=== PATIENT | female | born 1955 | race Caucasian/White ===

== ENCOUNTER → 2020-01-29 12:26 | Outpatient (CLI) | payer OTHER, SELFPAY ==
--- NOTE | ~2020-01-29 | MM_ITS ---
EXAMINATION: MM screening nickie BI w mirna HISTORY: Screening mammogram TECHNIQUE: Craniocaudal and mediolateral oblique 3-D tomosynthesis images were obtained and synthetic 2-D images were generated. CAD analysis was submitted and interpreted. COMPARISON: 11/03/2018 bilateral digital screening mammogram / bilateral diagnostic digital mammogram and Limited bilateral breast ultrasound 09/08/2014 bilateral digital screening mammogram BREAST PARENCHYMAL COMPOSITION: The breasts are heterogeneously dense, which may obscure small masses . FINDINGS: There is no evidence of suspicious mass, calcification, or architectural distortion to sugg est malignancy in either breast. There has been no suspicious interval change. IMPRESSION: 1. No mammographic evidence of malignancy. 2. Recommend routine screening mammography in one year. BI-RADS Category 1: Negative Reviewed, dictated and finalized at location A.
== END ==
PROVIDERS: PCP Family Medicine; Visit Provider Obstetrics & Gynecology
DX: Z12.31 Encounter for screening mammogram for malignant neoplasm of breast (principal)
CPT/HCPCS: 77063; 77067

== ENCOUNTER → 2020-01-29 12:29 | Outpatient (CLI) | payer OTHER, SELFPAY ==
--- NOTE | ~2020-01-29 | XR_ITS ---
EXAMINATION:XR cervical spine 4-5V DATE: 01/29/2020 13:06 INDICATION: Cervicalgia TECHNIQUE: AP, lateral, lateral swimmers and odontoid views of the cervical spine are provided. COMPARISON: None FINDINGS: There is reversal of normal cervical lordosis. There is 1 mm of anterolisthesis of C4 on C 5. The odontoid is intact. No fracture is identified. The vertebral body heights are normal. There is mild loss of intervertebral disc space height at C6-7 and C7-T1. Small degenerative osteophytes proj ect from the anterior endplates of multiple vertebral bodies. There is moderate facet and mild uncove rtebral joint osteoarthritis in the mid cervical spine. Prevertebral soft tissues are normal. IMPRESSION: 1. Mild cervical spondylosis without acute findings. Reviewed, dictated and finalized at location B.
== END ==
PROVIDERS: PCP Family Medicine; Visit Provider Family Medicine
DX: M47.892 Other spondylosis, cervical region (principal)
CPT/HCPCS: 72050

== ENCOUNTER 2020-02-26 12:21 | Outpatient (CLI) | payer OTHER, SELFPAY ==
[2020-02-26 12:30] LABS: Basophils Percent Auto 0.7 % (0.2-1.2); Eosinophils Absolute Auto 0.7 K/mm3 (0-0.3); Eosinophils Percent Auto 11.9 % (0-4.4); Hematocrit 36.8 % (37.0-47.0); Hemoglobin 12.1 g/dL (12.0-15.0); Immature Granulocyte Absolute 0.01 K/mm3 (0.00-0.031); Immature Granulocyte Percent A 0.2 % (0-0.5); Lymphocytes Absolute Auto 1.67 K/mm3 (0.9-3.2); Lymphocytes Percent Auto 27.6 % (18.3-44.2); Mean Corpuscular HGB Conc 32.9 g/dl (32-36); Mean Corpuscular Hemoglobin 30.3 pg (26-34); Mean Platelet Volume 9.8 fl (7.4-10.4); Monocytes Absolute Auto 0.5 K/mm3 (0.1-0.6); Monocytes Percent Auto 7.6 % (2.6-8.5); Neutrophils Absolute Auto 3.2 K/mm3 (1.3-6.7); Platelet Count Result 208 k/mm3 (150-375); Red Cell Distribution Width 11.8 % (11.5-14.5); White Blood Count 6.1 K/mm3 (4.5-10.0)
[2020-02-26 13:55] LABS: Iron 127 ug/dL (37-170)
[2020-02-26 14:04] LABS: Percent Iron Saturation 42 % (20-50)
[2020-02-26 14:08] LABS: Blood Urea Nitrogen 15 mg/dL (7-17); Calcium 9.6 mg/dL (8.4-10.2); Carbon Dioxide 30 mmol/L (22-30); Chloride 101 mmol/L (98-107); Estimated Glomerular Filt Rate > 60; Glucose 107 mg/dL (65-105); Potassium 3.6 mmol/L (3.4-5.0); Sodium 138 mmol/L (137-145)
== END 2020-02-26 12:22 | disposition home or self-care (01) ==
LOC: ANHLAB 12:22
PROVIDERS: PCP Family Medicine; Visit Provider Internal Medicine Hematology & Oncology
DX: D50.9 Iron deficiency anemia, unspecified (principal)
CPT/HCPCS: 36415; 80048; 82728; 83540; 83550; 84443; 85025

== ENCOUNTER 2020-04-14 10:48 | Outpatient (CLI) | payer OTHER, SELFPAY ==
[2020-04-14 11:05] LABS: Basophils Absolute Auto 0.1 K/mm3 (0.0-0.1); Basophils Percent Auto 1.1 % (0.2-1.2); Eosinophils Absolute Auto 0.8 K/mm3 (0-0.3); Eosinophils Percent Auto 13.9 % (0-4.4); Hemoglobin 11.8 g/dL (12.0-15.0); Immature Granulocyte Absolute 0.02 K/mm3 (0.00-0.031); Immature Granulocyte Percent A 0.4 % (0-0.5); Lymphocytes Absolute Auto 1.67 K/mm3 (0.9-3.2); Lymphocytes Percent Auto 30.9 % (18.3-44.2); Mean Corpuscular HGB Conc 32.8 g/dl (32-36); Mean Corpuscular Hemoglobin 29.6 pg (26-34); Mean Corpuscular Volume 90.2 fl (80-100); Mean Platelet Volume 9.7 fl (7.4-10.4); Monocytes Absolute Auto 0.5 K/mm3 (0.1-0.6); Monocytes Percent Auto 8.7 % (2.6-8.5); Neutrophils Absolute Auto 2.4 K/mm3 (1.3-6.7); Platelet Count Result 243 k/mm3 (150-375); Red Blood Count 3.99 M/mm3 (4.2-5.4); Red Cell Distribution Width 12.1 % (11.5-14.5); White Blood Count 5.4 K/mm3 (4.5-10.0)
[2020-04-14 12:03] LABS: Iron 104 ug/dL (37-170)
[2020-04-14 12:14] LABS: Percent Iron Saturation 35 % (20-50)
== END 2020-04-14 10:49 | disposition home or self-care (01) ==
PROVIDERS: PCP Family Medicine; Visit Provider Internal Medicine Hematology & Oncology
DX: D50.9 Iron deficiency anemia, unspecified (principal)
CPT/HCPCS: 36415; 82728; 83540; 83550; 85025

== ENCOUNTER 2020-06-01 12:20 | Outpatient (CLI) | payer OTHER, SELFPAY ==
[2020-06-01 12:33] LABS: Hematocrit 36.2 % (37.0-47.0); Mean Corpuscular HGB Conc 33.1 g/dl (32-36); Mean Corpuscular Hemoglobin 29.3 pg (26-34); Mean Corpuscular Volume 88.5 fl (80-100); Mean Platelet Volume 9.9 fl (7.4-10.4); Platelet Count Result 226 k/mm3 (150-375); Red Blood Count 4.09 M/mm3 (4.2-5.4); Red Cell Distribution Width 12.1 % (11.5-14.5); White Blood Count 6.4 K/mm3 (4.5-10.0)
[2020-06-01 16:43] LABS: Iron 103 ug/dL (37-170)
[2020-06-01 16:58] LABS: Percent Iron Saturation 34 % (20-50)
== END 2020-06-01 12:21 | disposition home or self-care (01) ==
PROVIDERS: PCP Family Medicine; Visit Provider Internal Medicine Hematology & Oncology
DX: D50.9 Iron deficiency anemia, unspecified (principal)
CPT/HCPCS: 36415; 82728; 83540; 83550; 85027

== ENCOUNTER 2020-08-30 01:11 | Outpatient (CLI) | payer OTHER, SELFPAY ==
[2020-08-31 13:51] LABS: SARS-CoV-2 RNA PCR Negative
== END 2020-08-30 01:12 | disposition home or self-care (01) ==
LOC: ANHCOVIDDT 01:12
PROVIDERS: PCP Family Medicine Sports Medicine; Visit Provider Internal Medicine Gastroenterology
DX: Z01.812 Encounter for preprocedural laboratory examination (principal); Z20.828 Contact with and (suspected) exposure to other viral communicable diseases
CPT/HCPCS: 87635; C9803; U0003

== ENCOUNTER 2020-09-01 00:35 | Day surgery (SDC) | payer OTHER, SELFPAY ==
[2020-08-29 13:18] VITALS: BMI 25.7
--- NOTE | 2020-08-31 09:24 | WPDANESEPPF ---
Anes - Initial Pre Proc Eval Procedure: Operation Date: 09/01/20 09:00 Proposed Procedures p Esophagogastroduodenoscopy - Dany Ramires DO Date/Time: 08/31/20 09:24 Surgeon: Dany Ramires DO Pre Op Diagnosis: iron deficiency anemia Patient Data Age: 64 Gender: F Height: 1.63 m Weight: 68 kg Allergies Allergy/AdvReac Type Severity Reaction Status Date / Time No Known Allergies Allergy Verified 09/01/20 07:37 Home Medications Medication Instructions Recorded Confirmed Type ezetimibe 10 mg tablet 10 mg PO DAILY #90 tablet 01/11/20 08/29/20 Rx melatonin 10 mg capsule 10 mg PO .qhs cap 01/27/20 08/29/20 History vitamin B complex See Rx Instructions PO DAILY 01/27/20 08/29/20 History omeprazole 40 mg capsule,delayed 40 mg PO DAILY #90 cap 04/05/20 08/29/20 Rx release hydrochlorothiazide 25 mg tablet 25 mg PO DAILY #90 tablet 04/11/20 08/29/20 Rx ergocalciferol (vitamin D2) 1,250 50,000 unit PO WEEKLY #14 cap 06/03/20 08/29/20 Rx mcg (50,000 unit) capsule alprazolam 1 mg tablet,extended 1 mg PO DAILY #30 tablet 07/04/20 08/29/20 Rx release 24 hr lisinopril 40 mg tablet 40 mg PO DAILY #90 tablet 07/04/20 08/29/20 Rx duloxetine 60 mg capsule,delayed 60 mg PO DAILY #90 cap 07/05/20 08/29/20 Rx release aspirin [Adult Aspirin EC Low 81 mg PO DAILY 08/29/20 08/29/20 History Strength] carvedilol 6.25 mg PO BID 08/29/20 08/29/20 History icosapent ethyl [Vascepa] 2 g PO BID 08/29/20 08/29/20 History rosuvastatin 40 mg PO HS 08/29/20 08/29/20 History Patient hx anesthesia problems: none Family hx anesthesia problems: none PMFSH Past Medical History Medical History (Updated 08/31/20 @ 09:23 by Freddie Armando DO) Anxiety Benign essential HTN Depression GERD (gastroesophageal reflux disease) H/O reduction of open fracture (~03/2020) internal fixation of the left proximal humerus fracture Mixed hyperlipidemia Surgical History Surgical History History of shoulder surgery Family History Family History Mother Hypertension Family history of malignant neoplasm of kidney Family history of heart disease in male family member before age 55 Other Family history of cardiovascular disease Family history of kidney disease Social History Social History Smoking status: Never smoker Alcohol intake: never Substance use: never Substance use type: does not use Spiritual care concerns: No Anes - Eval Final PreProcedure Day of Procedure 08/31/20 09:24 Patient weight: overweight Heart: regular rate and rhythm Lungs: clear to auscultation and normal air movement Airway: Mallampati scale Neurological: alert and oriented Last oral intake: >/= 8 hours ASA classification: II Emergent: no Anesthetic plan: proceed Anesthesia type and monitoring: general GIVS and standard monitoring Informed Consent: The patient's anesthetic plan and its attendant risks and benefits were discussed with the patient/family/POA. Questions were solicited and answers provided to the satisfaction of the patient/family/POA.
[2020-09-01 07:39] VITALS: BP 122/79; PULSE 77; RESP 14; TEMP 36.6; O2SAT 99
[2020-09-01] MEDS: LACTATED RINGERS 1,000 ML 150 ML IV CONT (07:42)
--- NOTE | 2020-09-01 09:05 | PM.IMHP ---
H&P: HPI History of Present Illness Date/Time: 09/01/20 09:05 Chief complaint: iron deficiency anemia Narrative: Reason for visit EGD. This very pleasant lady seen in consultation request of primary physician. Impression: Iron deficiency anemia. GERD well controlled on medication. History adenomatous colon polyps. History of gastric polyps. Intestinal metaplasia . HTN. HLD. Anxiety /depression. Low bone mass. History: This very pleasant lady's here with a history of Id a. The patient had a previous colonoscopy revealing adenomatous colon polyps. Patient is here for EGD. Previous EGD revealed gastric polyps with intestinal metaplasia. Physical examination: General: very pleasant patient in no acute distress. HEENT: Head was normocephalic sclerae is clear mouth without masses neck was supple. Heart: Rate rhythm regular without S3 or S4. Lungs: CTA. Abdomen: Soft with no guarding or rigidity. Bowel sounds were active. Neurologic: Cranial nerves 2 through 12 intact. No focal defects. No clonus. Musculoskeletal system: Revealed no joint tenderness or swelling no muscle atrophy. Extremities: Reveal no significant edema. Skin: Warm and dry with normal turgor. Mental status: intact. Patient is alert and oriented. Review of Systems Review of Systems: All systems reviewed & are unremarkable except as noted in HPI and below PMFSH Past Medical History Medical History (Updated 08/31/20 @ 09:23 by Freddie Armando DO) Anxiety Benign essential HTN Depression GERD (gastroesophageal reflux disease) H/O reduction of open fracture (~03/2020) internal fixation of the left proximal humerus fracture Mixed hyperlipidemia Surgical History Surgical History History of shoulder surgery Family History Family History Mother Hypertension Family history of malignant neoplasm of kidney Family history of heart disease in male family member before age 55 Other Family history of cardiovascular disease Family history of kidney disease Social History Social History Smoking status: Never smoker Alcohol intake: never Substance use: never Substance use type: does not use Spiritual care concerns: No Meds Home Medications and Allergies Home Medications Medication Instructions Recorded Confirmed Type ezetimibe 10 mg tablet 10 mg PO DAILY #90 tablet 01/11/20 08/29/20 Rx melatonin 10 mg capsule 10 mg PO .qhs cap 01/27/20 08/29/20 History vitamin B complex See Rx Instructions PO DAILY 01/27/20 08/29/20 History omeprazole 40 mg capsule,delayed 40 mg PO DAILY #90 cap 04/05/20 08/29/20 Rx release hydrochlorothiazide 25 mg tablet 25 mg PO DAILY #90 tablet 04/11/20 08/29/20 Rx ergocalciferol (vitamin D2) 1,250 50,000 unit PO WEEKLY #14 cap 06/03/20 08/29/20 Rx mcg (50,000 unit) capsule alprazolam 1 mg tablet,extended 1 mg PO DAILY #30 tablet 07/04/20 08/29/20 Rx release 24 hr lisinopril 40 mg tablet 40 mg PO DAILY #90 tablet 07/04/20 08/29/20 Rx duloxetine 60 mg capsule,delayed 60 mg PO DAILY #90 cap 07/05/20 08/29/20 Rx release aspirin [Adult Aspirin EC Low 81 mg PO DAILY 08/29/20 08/29/20 History Strength] carvedilol 6.25 mg PO BID 08/29/20 08/29/20 History icosapent ethyl [Vascepa] 2 g PO BID 08/29/20 08/29/20 History rosuvastatin 40 mg PO HS 08/29/20 08/29/20 History Allergies Allergy/AdvReac Type Severity Reaction Status Date / Time No Known Allergies Allergy Verified 09/01/20 07:37 Vital Signs Vital Signs - 24 hr 09/01/20 07:39 Temperature 36.6 C Pulse Rate 77 Respiratory Rate 14 Blood Pressure 122/79 Pulse Oximetry 99
[2020-09-01 09:26] VITALS: BP 93/48; PULSE 63; RESP 14; O2SAT 100
[2020-09-01 09:36] VITALS: BP 88/52; PULSE 64; RESP 16; O2SAT 100
[2020-09-01 09:46] VITALS: BP 101/61; PULSE 58; RESP 14; O2SAT 100
[2020-09-01 09:56] VITALS: BP 128/74; PULSE 56; RESP 13; O2SAT 100
== END 2020-09-01 10:12 | disposition home or self-care (01) ==
PROVIDERS: PCP Family Medicine Sports Medicine; Visit Provider Internal Medicine Gastroenterology
PROC: 0DJ08ZZ Inspection of Upper Intestinal Tract, Via Natural or Artificial Opening Endoscopic (ICD-10-PCS; CPT 43235; principal; 2020-09-01 09:00)
DX: D50.9 Iron deficiency anemia, unspecified (principal); K31.7 Polyp of stomach and duodenum; K29.50 Unspecified chronic gastritis without bleeding; K21.9 Gastro-esophageal reflux disease without esophagitis; I10 Essential (primary) hypertension; E78.2 Mixed hyperlipidemia; F41.8 Other specified anxiety disorders
CPT/HCPCS: 43239; 87081; 88305; J7120

== ENCOUNTER 2020-09-01 10:55 | Outpatient (CLI) | payer OTHER, SELFPAY ==
[2020-09-01 11:12] LABS: Basophils Absolute Auto 0.1 K/mm3 (0.0-0.1); Basophils Percent Auto 0.9 % (0.2-1.2); Eosinophils Absolute Auto 0.6 K/mm3 (0-0.3); Eosinophils Percent Auto 11.6 % (0-4.4); Hematocrit 35.4 % (37.0-47.0); Hemoglobin 11.7 g/dL (12.0-15.0); Immature Granulocyte Absolute 0.01 K/mm3 (0.00-0.031); Immature Granulocyte Percent A 0.2 % (0-0.5); Lymphocytes Absolute Auto 1.68 K/mm3 (0.9-3.2); Lymphocytes Percent Auto 31.8 % (18.3-44.2); Mean Corpuscular HGB Conc 33.1 g/dl (32-36); Mean Corpuscular Hemoglobin 29.9 pg (26-34); Mean Corpuscular Volume 90.5 fl (80-100); Mean Platelet Volume 9.3 fl (7.4-10.4); Monocytes Absolute Auto 0.4 K/mm3 (0.1-0.6); Neutrophils Absolute Auto 2.6 K/mm3 (1.3-6.7); Neutrophils Percent Auto 48.5 % (45.5-73.1); Platelet Count Result 222 k/mm3 (150-375); Red Blood Count 3.91 M/mm3 (4.2-5.4); Red Cell Distribution Width 12.7 % (11.5-14.5); White Blood Count 5.3 K/mm3 (4.5-10.0)
[2020-09-01 11:17] LABS: Blood Urea Nitrogen 11 mg/dL (8-26); Carbon Dioxide 28 mmol/L (22-30); Chloride 102 mmol/L (98-109); Estimated Glomerular Filt Rate > 60; Glucose 94 mg/dL (70-105); Potassium 3.3 mmol/L (3.5-4.9); Sodium 143 mmol/L (138-146)
[2020-09-01 12:41] LABS: Iron 79 ug/dL (37-170)
[2020-09-01 12:43] LABS: Alanine Aminotransferase 31 U/L (4-35); Albumin Level 4.6 g/dL (3.5-5.1); Alkaline Phosphatase 65 U/L (38-126); Anion Gap 10 mmol/L (8-16); Aspartate Amino Transferase 37 U/L (14-36); Bilirubin,Total 0.4 mg/dL (0.2-1.3); Blood Urea Nitrogen 12 mg/dL (7-17); Calcium 9.6 mg/dL (8.4-10.2); Carbon Dioxide 32 mmol/L (22-30); Chloride 102 mmol/L (98-107); Estimated Glomerular Filt Rate > 60; Glucose 91 mg/dL (65-105); Potassium 3.5 mmol/L (3.4-5.0); Sodium 144 mmol/L (137-145)
[2020-09-01 12:50] LABS: Percent Iron Saturation 23 % (20-50)
== END 2020-09-01 10:56 | disposition home or self-care (01) ==
PROVIDERS: PCP Family Medicine Sports Medicine; Visit Provider Internal Medicine Hematology & Oncology
DX: D50.9 Iron deficiency anemia, unspecified (principal)
CPT/HCPCS: 36415; 80048; 80053; 82728; 83540; 83550; 85025

== ENCOUNTER → 2020-09-21 12:01 | Outpatient (CLI) | payer OTHER, SELFPAY ==
--- NOTE | ~2020-09-21 | XR_ITS ---
XR chest 2V DATE: 09/21/2020 12:15 INDICATION: Pneumonia TECHNIQUE: PA and lateral views COMPARISON: 01/13/2020 employee chest 07/15/2018 PA and lateral chest FINDINGS: Left upper lobe calcified pulmonary granuloma is again noted. The lungs are mildly hyperinf lated but clear of infiltrate or consolidation. Heart size is within normal range. No hilar or medias tinal enlargement. No pulmonary vascular congestion, pleural effusion or pneumothorax. Diffuse osteopenia. Hardware is noted at the proximal left humerus. IMPRESSION: No active cardiopulmonary disease Reviewed, dictated and finalized at location B. CILPERSON
== END ==
PROVIDERS: PCP Family Medicine Sports Medicine; Visit Provider Family Medicine Sports Medicine
DX: J18.9 Pneumonia, unspecified organism (principal)
CPT/HCPCS: 71046

== ENCOUNTER 2020-10-24 12:16 | Outpatient (CLI) | payer OTHER, SELFPAY ==
[2020-10-24 12:30] LABS: Basophils Absolute Auto 0.1 K/mm3 (0.0-0.1); Basophils Percent Auto 0.9 % (0.2-1.2); Eosinophils Absolute Auto 0.7 K/mm3 (0-0.3); Hematocrit 35.1 % (37.0-47.0); Hemoglobin 11.8 g/dL (12.0-15.0); Immature Granulocyte Absolute 0.01 K/mm3 (0.00-0.031); Immature Granulocyte Percent A 0.1 % (0-0.5); Lymphocytes Percent Auto 29.9 % (18.3-44.2); Mean Corpuscular HGB Conc 33.6 g/dl (32-36); Mean Corpuscular Hemoglobin 29.8 pg (26-34); Mean Corpuscular Volume 88.6 fl (80-100); Mean Platelet Volume 9.4 fl (7.4-10.4); Monocytes Absolute Auto 0.6 K/mm3 (0.1-0.6); Monocytes Percent Auto 7.9 % (2.6-8.5); Neutrophils Absolute Auto 3.9 K/mm3 (1.3-6.7); Neutrophils Percent Auto 52.2 % (45.5-73.1); Platelet Count Result 217 k/mm3 (150-375); Red Blood Count 3.96 M/mm3 (4.2-5.4); Red Cell Distribution Width 12.1 % (11.5-14.5); White Blood Count 7.4 K/mm3 (4.5-10.0)
[2020-10-24 13:53] LABS: Iron 79 ug/dL (37-170)
[2020-10-24 13:55] LABS: Alanine Aminotransferase 24 U/L (4-35); Albumin Level 4.4 g/dL (3.5-5.1); Alkaline Phosphatase 52 U/L (38-126); Anion Gap 7 mmol/L (8-16); Aspartate Amino Transferase 33 U/L (14-36); Bilirubin,Total 0.5 mg/dL (0.2-1.3); Blood Urea Nitrogen 14 mg/dL (7-17); Calcium 9.7 mg/dL (8.4-10.2); Carbon Dioxide 33 mmol/L (22-30); Chloride 101 mmol/L (98-107); Estimated Glomerular Filt Rate > 60; Glucose 104 mg/dL (65-105); Sodium 141 mmol/L (137-145)
[2020-10-24 14:02] LABS: Percent Iron Saturation 23 % (20-50)
[2020-10-24 15:15] LABS: Folic Acid 16.6 ng/mL (2.76->20); Vitamin B12 > 1000.0 pg/mL (239-931)
== END 2020-10-24 12:17 | disposition home or self-care (01) ==
PROVIDERS: Visit Provider Internal Medicine Hematology & Oncology
DX: D50.9 Iron deficiency anemia, unspecified (principal)
CPT/HCPCS: 36415; 80053; 82607; 82728; 82746; 83540; 83550; 85025

== ENCOUNTER 2021-06-13 12:27 | Outpatient (CLI) | payer OTHER, SELFPAY ==
[2021-06-13 12:51] LABS: Basophils Absolute Auto 0.1 K/mm3 (0.0-0.1); Basophils Percent Auto 0.9 % (0.2-1.2); Eosinophils Absolute Auto 0.3 K/mm3 (0-0.3); Eosinophils Percent Auto 5.5 % (0-4.4); Hematocrit 35.2 % (37.0-47.0); Hemoglobin 11.7 g/dL (12.0-15.0); Immature Granulocyte Absolute 0.01 K/mm3 (0.00-0.031); Immature Granulocyte Percent A 0.2 % (0-0.5); Lymphocytes Percent Auto 33.3 % (18.3-44.2); Mean Corpuscular HGB Conc 33.2 g/dl (32-36); Mean Corpuscular Hemoglobin 29.2 pg (26-34); Mean Corpuscular Volume 87.8 fl (80-100); Mean Platelet Volume 9.3 fl (7.4-10.4); Monocytes Absolute Auto 0.4 K/mm3 (0.1-0.6); Monocytes Percent Auto 7.8 % (2.6-8.5); Neutrophils Absolute Auto 2.8 K/mm3 (1.3-6.7); Neutrophils Percent Auto 52.3 % (45.5-73.1); Platelet Count Result 236 k/mm3 (150-375); Red Blood Count 4.01 M/mm3 (4.2-5.4); Red Cell Distribution Width 12.9 % (11.5-14.5); White Blood Count 5.4 K/mm3 (4.5-10.0)
[2021-06-13 16:34] LABS: Iron 110 ug/dL (37-170)
[2021-06-13 16:47] LABS: Percent Iron Saturation 34 % (20-50)
[2021-06-13 17:42] LABS: Folic Acid 12.2 ng/mL (2.76->20); Vitamin B12 > 1000.0 pg/mL (239-931)
== END 2021-06-13 12:28 | disposition home or self-care (01) ==
LOC: ANHLAB 12:30
PROVIDERS: PCP Family Medicine; Visit Provider Internal Medicine Hematology & Oncology
DX: D50.9 Iron deficiency anemia, unspecified (principal)
CPT/HCPCS: 36415; 82607; 82728; 82746; 83540; 83550; 85025

== ENCOUNTER → 2021-06-30 10:49 | Outpatient (CLI) | payer OTHER, SELFPAY ==
--- NOTE | ~2021-06-30 | XR_ITS ---
EXAMINATION: XR chest 2V DATE: 06/30/2021 11:04 INDICATION: Shortness of breath. TECHNIQUE: Frontal and lateral views of the chest were obtained. COMPARISON: Chest 2 views 09/21/2020, CT abdomen and pelvis 08/03/2019 FINDINGS: A calcified left lung nodule is consistent with old granulomatous disease. No pleural effus ion or pneumothorax. The heart size is normal. There is plate and screw fixation of proximal left hum erus. IMPRESSION: 1. No acute cardiopulmonary disease. Reviewed, dictated and finalized at location A.
== END ==
PROVIDERS: PCP Family Medicine; Visit Provider Physician Assistant
DX: R06.02 Shortness of breath (principal)
CPT/HCPCS: 71046

== ENCOUNTER 2021-10-24 17:31 | Outpatient (CLI) | payer OTHER, SELFPAY ==
--- NOTE | ~2021-10-24 | MM_ITS ---
EXAMINATION: MM screening [facility] BI w mirna HISTORY: Screening mammogram TECHNIQUE: Craniocaudal and mediolateral oblique 3-D tomosynthesis images were obtained and synthetic 2-D images were generated. CAD analysis was submitted and interpreted. COMPARISON: 01/29/2020, 11/03/2018, 09/08/2014 BREAST PARENCHYMAL COMPOSITION: The breasts are heterogeneously dense, which may obscure small masses . FINDINGS: There is no evidence of suspicious mass, calcification, or architectural distortion to sugg est malignancy in either breast. There has been no suspicious interval change. IMPRESSION: 1. No mammographic evidence of malignancy. 2. Recommend routine screening mammography in one year. BI-RADS Category 1: Negative Reviewed, dictated and finalized at location A. PRESIDENT OF TALENT MANAGEMENT
== END 2021-10-24 17:32 | disposition home or self-care (01) ==
LOC: ANHIMG 17:32
PROVIDERS: PCP Family Medicine; Visit Provider Obstetrics & Gynecology
DX: Z12.31 Encounter for screening mammogram for malignant neoplasm of breast (principal)
CPT/HCPCS: 77063; 77067

== ENCOUNTER 2021-12-15 12:31 | Outpatient (CLI) | payer OTHER, SELFPAY ==
[2021-12-15 12:48] LABS: Basophils Absolute Auto 0.1 K/mm3 (0.0-0.1); Basophils Percent Auto 1.1 % (0.2-1.2); Eosinophils Absolute Auto 0.4 K/mm3 (0-0.3); Eosinophils Percent Auto 6.4 % (0-4.4); Hematocrit 36.4 % (37.0-47.0); Hemoglobin 11.8 g/dL (12.0-15.0); Immature Granulocyte Absolute 0.01 K/mm3 (0.00-0.031); Immature Granulocyte Percent A 0.2 % (0-0.5); Lymphocytes Absolute Auto 1.89 K/mm3 (0.9-3.2); Lymphocytes Percent Auto 30.8 % (18.3-44.2); Mean Corpuscular HGB Conc 32.4 g/dl (32-36); Mean Corpuscular Hemoglobin 29.5 pg (26-34); Mean Platelet Volume 9.7 fl (7.4-10.4); Monocytes Absolute Auto 0.6 K/mm3 (0.1-0.6); Neutrophils Absolute Auto 3.2 K/mm3 (1.3-6.7); Neutrophils Percent Auto 52.5 % (45.5-73.1); Platelet Count Result 228 k/mm3 (150-375); Red Cell Distribution Width 12.3 % (11.5-14.5); White Blood Count 6.1 K/mm3 (4.5-10.0)
[2021-12-15 16:22] LABS: Iron 85 ug/dL (37-170)
[2021-12-15 16:25] LABS: Anion Gap 7 mmol/L (8-16); Blood Urea Nitrogen 14 mg/dL (7-17); Calcium 9.6 mg/dL (8.4-10.2); Carbon Dioxide 32 mmol/L (22-30); Chloride 98 mmol/L (98-107); Estimated Glomerular Filt Rate > 60; Glucose 92 mg/dL (65-110); Sodium 137 mmol/L (137-145)
[2021-12-15 16:37] LABS: Percent Iron Saturation 25 % (20-50)
[2021-12-15 17:33] LABS: Folic Acid 10.9 ng/mL (2.76->20)
== END 2021-12-15 12:32 | disposition home or self-care (01) ==
LOC: ANHLAB 12:33
PROVIDERS: PCP Family Medicine; Visit Provider Internal Medicine Hematology & Oncology
DX: D50.9 Iron deficiency anemia, unspecified (principal)
CPT/HCPCS: 36415; 80048; 82607; 82728; 82746; 83540; 83550; 85025

== ENCOUNTER 2021-12-25 11:38 | Outpatient (CLI) | payer OTHER, SELFPAY ==
--- NOTE | ~2021-12-25 | US_ITS ---
US breast LT complete DATE: 12/25/2021 12:14 INDICATION: Left breast pain, lateral half for 2 to 3 months TECHNIQUE: Complete left breast ultrasound examination COMPARISON: 10/24/2021 bilateral screening mammogram, reported negative FINDINGS: There is a parallel circumscribed sonolucency measuring 2.1 x 4.5 x 4.6 mm at 6:00 2 cm fro m the nipple consistent with small cyst. No suspicious mass or shadowing of the left breast is detected. (I confirmed with the orthopedic radiologic technologist that the examination was performed on the left breast.) IMPRESSION: BI-RADS Category 2: Benign Recommendation: Routine mammographic screening Reviewed, dictated and finalized at Location A. Reviewed, dictated and finalized at location A. SHING WHEEL REPAIRER
== END 2021-12-25 11:39 | disposition home or self-care (01) ==
PROVIDERS: PCP Family Medicine; Visit Provider Internal Medicine Hematology & Oncology
DX: N64.4 Mastodynia (principal)
CPT/HCPCS: 76641

== ENCOUNTER 2022-04-16 09:03 | Outpatient (CLI) | payer OTHER, SELFPAY ==
[2022-04-16 09:29] LABS: Basophils Absolute Auto 0.1 K/mm3 (0.0-0.1); Basophils Percent Auto 0.8 % (0.2-1.2); Eosinophils Absolute Auto 0.3 K/mm3 (0-0.3); Eosinophils Percent Auto 5.3 % (0-4.4); Hematocrit 34.6 % (37.0-47.0); Hemoglobin 11.3 g/dL (12.0-15.0); Immature Granulocyte Absolute 0.01 K/mm3 (0.00-0.031); Immature Granulocyte Percent A 0.2 % (0-0.5); Lymphocytes Absolute Auto 1.96 K/mm3 (0.9-3.2); Lymphocytes Percent Auto 31.4 % (18.3-44.2); Mean Corpuscular HGB Conc 32.7 g/dl (32-36); Mean Corpuscular Volume 88.9 fl (80-100); Mean Platelet Volume 9.2 fl (7.4-10.4); Monocytes Absolute Auto 0.6 K/mm3 (0.1-0.6); Monocytes Percent Auto 10.1 % (2.6-8.5); Neutrophils Absolute Auto 3.3 K/mm3 (1.3-6.7); Neutrophils Percent Auto 52.2 % (45.5-73.1); Platelet Count Result 207 k/mm3 (150-375); Red Blood Count 3.89 M/mm3 (4.2-5.4); White Blood Count 6.3 K/mm3 (4.5-10.0)
[2022-04-16 13:27] LABS: Iron 80 ug/dL (37-170)
[2022-04-16 13:30] LABS: Anion Gap 7 mmol/L (8-16); Blood Urea Nitrogen 13 mg/dL (7-17); Calcium 9.5 mg/dL (8.4-10.2); Carbon Dioxide 30 mmol/L (22-30); Chloride 102 mmol/L (98-107); Estimated Glomerular Filt Rate > 60; Glucose 92 mg/dL (65-110); Potassium 3.4 mmol/L (3.4-5.0); Sodium 139 mmol/L (137-145)
[2022-04-16 13:37] LABS: Percent Iron Saturation 23 % (20-50)
[2022-04-16 14:38] LABS: Folic Acid > 20.0 ng/mL (2.76->20); Vitamin B12 > 1000.0 pg/mL (239-931)
== END 2022-04-16 09:04 | disposition home or self-care (01) ==
LOC: ANHLAB 09:05
PROVIDERS: PCP Family Medicine; Visit Provider Internal Medicine Hematology & Oncology
DX: D50.9 Iron deficiency anemia, unspecified (principal)
CPT/HCPCS: 36415; 80048; 82607; 82728; 82746; 83540; 83550; 85025

== ENCOUNTER 2022-07-27 11:54 | Outpatient (CLI) | payer OTHER, SELFPAY ==
[2022-07-27 12:11] LABS: Basophils Absolute Auto 0.1 K/mm3 (0.0-0.1); Basophils Percent Auto 1.4 % (0.2-1.2); Eosinophils Absolute Auto 0.5 K/mm3 (0-0.3); Eosinophils Percent Auto 8.6 % (0-4.4); Hematocrit 36.3 % (37.0-47.0); Immature Granulocyte Absolute 0.02 K/mm3 (0.00-0.031); Immature Granulocyte Percent A 0.3 % (0-0.5); Lymphocytes Absolute Auto 1.78 K/mm3 (0.9-3.2); Lymphocytes Percent Auto 30.6 % (18.3-44.2); Mean Corpuscular HGB Conc 33.1 g/dl (32-36); Mean Corpuscular Volume 90.8 fl (80-100); Mean Platelet Volume 9.4 fl (7.4-10.4); Monocytes Absolute Auto 0.4 K/mm3 (0.1-0.6); Monocytes Percent Auto 7.6 % (2.6-8.5); Neutrophils Percent Auto 51.5 % (45.5-73.1); Platelet Count Result 253 k/mm3 (150-375); Red Cell Distribution Width 12.3 % (11.5-14.5); White Blood Count 5.8 K/mm3 (4.5-10.0)
[2022-07-27 13:53] LABS: Iron 110 ug/dL (37-170)
[2022-07-27 13:59] LABS: Alanine Aminotransferase 26 U/L (6-35); Albumin Level 4.7 g/dL (3.5-5.1); Alkaline Phosphatase 52 U/L (38-126); Anion Gap 10 mmol/L (8-16); Aspartate Amino Transferase 30 U/L (14-36); Bilirubin,Total 0.4 mg/dL (0.2-1.3); Blood Urea Nitrogen 12 mg/dL (7-17); Calcium 9.7 mg/dL (8.4-10.2); Carbon Dioxide 29 mmol/L (22-30); Chloride 100 mmol/L (98-107); Estimated Glomerular Filt Rate > 60; Glucose 104 mg/dL (65-110); Sodium 139 mmol/L (137-145)
[2022-07-27 14:08] LABS: Percent Iron Saturation 31 % (20-50)
[2022-07-27 15:04] LABS: Folic Acid > 20.0 ng/mL (2.76->20)
== END 2022-07-27 11:55 | disposition home or self-care (01) ==
LOC: ANHLAB 11:56
PROVIDERS: PCP Family Medicine; Visit Provider Internal Medicine Hematology & Oncology
DX: D50.9 Iron deficiency anemia, unspecified (principal)
CPT/HCPCS: 36415; 80053; 82607; 82728; 82746; 83540; 83550; 85025

== ENCOUNTER 2022-12-27 16:47 | Outpatient (CLI) | payer MEDICARE, SELFPAY ==
--- NOTE | ~2022-12-27 | DEXA_ITS ---
Bone Density Report Name: JESSICA HAN Age: 67 Sex: Female Ethnicity: White Date of : 1955 Indication: postmenopausal; screening for osteoporosis; asthma or emphysema; Referring Provider: BRAYAN CABRAL Study: Bone densitometry was performed. Exam Date: December 27, 2022 Accession number: [id number] Bone Density: Region BMD T-score Z-score Classification AP Spine(L1-L4) 0.820 -2.1 -0.3 Osteopenia Femoral Neck (Right) 0.701 -1.3 0.2 Osteopenia Total Hip (Right) 0.989 0.4 1.6 Normal World Health Organization criteria for BMD impression classify patients as: Normal (T-score at or above -1.0), Osteopenia (T-score between -1.0 and -2.5), or Osteoporosis (T-score at or below -2.5). 10-year Fracture Risk: FRAX not reported because: Treated for osteoporosis Clinical Information Provided by Patient: Is being treated for osteoporosis Has used the following medications: Actonel (i.e. risedronate) Has the following medical conditions: Asthma or Emphysema Patient maximum height was 64 Menopause Age: 50 No regular weight bearing exercise Does not regularly consume dairy products Drinks caffeinated beverages Onset of menses at age 14 Number of children 2 Impression: The patient has low bone mass, based on the Total Spine T-score. Discussion: It is important to ask patients whether they are taking their medications and to encourage continued and appropriate compliance with their osteoporosis therapies to reduce fracture risk. It is also important to review their risk factors and encourage appropriate calcium and vitamin D intakes, exercise, fall prevention and other lifestyle measures. Follow-Up: Consider a repeat BMD and Vertebral Fracture Assessment (VFA) exam in 2 years or sooner if medically necessary, to reassess this patient's status. Reported by: NELY on 12/27/2022 5:39:00 PM. Reviewed, dictated and finalized at location ACatarina VAZ
== END 2022-12-27 16:48 | disposition home or self-care (01) ==
PROVIDERS: PCP Family Medicine; Visit Provider Family Medicine
DX: Z78.0 Asymptomatic menopausal state (principal); M85.88 Other specified disorders of bone density and structure, other site; M85.851 Other specified disorders of bone density and structure, right thigh
CPT/HCPCS: 77080

== ENCOUNTER 2023-01-15 15:24 | Outpatient (CLI) | payer MEDICARE, SELFPAY ==
[2023-01-15 15:40] LABS: Basophils Absolute Auto 0.1 K/mm3 (0.0-0.1); Basophils Percent Auto 0.7 % (0.2-1.2); Eosinophils Absolute Auto 0.5 K/mm3 (0-0.3); Eosinophils Percent Auto 6.2 % (0-4.4); Hematocrit 33.3 % (37.0-47.0); Hemoglobin 11.3 g/dL (12.0-15.0); Immature Granulocyte Absolute 0.02 K/mm3 (0.00-0.031); Immature Granulocyte Percent A 0.3 % (0-0.5); Lymphocytes Absolute Auto 2.47 K/mm3 (0.9-3.2); Lymphocytes Percent Auto 34.1 % (18.3-44.2); Mean Corpuscular HGB Conc 33.9 g/dl (32-36); Mean Corpuscular Hemoglobin 29.8 pg (26-34); Mean Corpuscular Volume 87.9 fl (80-100); Mean Platelet Volume 9.3 fl (7.4-10.4); Monocytes Absolute Auto 0.6 K/mm3 (0.1-0.6); Monocytes Percent Auto 8.4 % (2.6-8.5); Neutrophils Absolute Auto 3.6 K/mm3 (1.3-6.7); Neutrophils Percent Auto 50.3 % (45.5-73.1); Platelet Count Result 228 k/mm3 (150-375); Red Blood Count 3.79 M/mm3 (4.2-5.4); Red Cell Distribution Width 12.4 % (11.5-14.5); White Blood Count 7.2 K/mm3 (4.5-10.0)
[2023-01-15 18:26] LABS: Potassium 3.8 mmol/L (3.4-5.0)
[2023-01-15 18:27] LABS: Iron 59 ug/dL (37-170)
[2023-01-15 18:38] LABS: Anion Gap 7 mmol/L (8-16); Blood Urea Nitrogen 14 mg/dL (7-17); Calcium 9.1 mg/dL (8.4-10.2); Carbon Dioxide 30 mmol/L (22-30); Chloride 99 mmol/L (98-107); Estimated Glomerular Filt Rate > 60; Glucose 90 mg/dL (65-110); Sodium 136 mmol/L (137-145)
[2023-01-15 18:42] LABS: Percent Iron Saturation 18 % (20-50)
[2023-01-15 20:00] LABS: Folic Acid > 20.0 ng/mL (2.76->20)
== END 2023-01-15 15:25 | disposition home or self-care (01) ==
LOC: ANHLAB 15:27
PROVIDERS: PCP Family Medicine; Visit Provider Internal Medicine Hematology & Oncology
DX: D50.9 Iron deficiency anemia, unspecified (principal)
CPT/HCPCS: 36415; 80048; 82607; 82728; 82746; 83540; 83550; 85025

== ENCOUNTER 2023-01-25 11:44 | Outpatient (CLI) | payer MEDICARE, SELFPAY ==
--- NOTE | ~2023-01-25 | MMUS_ITS ---
EXAMINATION: MM diagnostic nickie BI w mirna, US breast BI complete HISTORY: Breast pain and swelling TECHNIQUE: Additional 3-D tomosynthesis images of Breast composed of scattered areas of fibroglandula r density were performed and synthetic 2-D images were generated. CAD analysis was submitted and inte rpreted. High resolution bilateral complete breast ultrasound was performed. COMPARISON: Comparison to multiple prior studies sequentially, with oldest reviewed study dated 03/2014. BREAST PARENCHYMAL COMPOSITION: The breasts are heterogeneously dense, which may obscure small masses FINDINGS: MAMMOGRAPHIC FINDINGS: There are no suspicious masses, calcifications or architectural distortion in either breast to sugges t malignancy. ULTRASOUND: Complete bilateral US of all 4 quadrants of the breasts and retroareolar region was reviewed. Normal heterogeneous echotexture without focal solid or cystic mass in either breast. IMPRESSION: 1. No evidence for malignancy in either breast. 2. Routine yearly screening mammogram and regular clinical breast examination are recommended. BI-RADS Category 1: Negative Reviewed, dictated and finalized at location A. IMPRESSION: 1. No evidence for malignancy in either breast. 2. Routine yearly screening mammogram and regular clinical breast examination a re recommended. BI-RADS Category 1: Negative
== END 2023-01-25 11:45 | disposition home or self-care (01) ==
PROVIDERS: Visit Provider Family Medicine
DX: N60.19 Diffuse cystic mastopathy of unspecified breast (principal); N64.4 Mastodynia
CPT/HCPCS: 76641; 77062; 77066; G0279

== ENCOUNTER 2023-03-12 14:51 | Outpatient (CLI) | payer MEDICARE, SELFPAY ==
[2023-03-13 09:28] LABS: Kit Draw Collected
== END 2023-03-12 14:52 | disposition home or self-care (01) ==
LOC: ANHGOSHLAB 14:53
PROVIDERS: PCP Family Medicine; Visit Provider Physician Assistant
DX: H93.11 Tinnitus, right ear (principal); R51.9 Headache, unspecified
CPT/HCPCS: 36415

== ENCOUNTER → 2023-04-23 10:02 | Outpatient (CLI) | payer MEDICARE, SELFPAY ==
--- NOTE | ~2023-04-23 | MR_ITS ---
MRI of the brain Clinical History: Tinnitus Technique: Axial and sagittal T1-weighted images were acquired. These were followed by axial T2-weigh kyra, diffusion weighted, gradient, and FLAIR images. Coronal thin cut T1-weighted and T2-weighted alla ges, and thin cut axial T1-weighted images, were acquired through the internal auditory canals. Follo wing intravenous administration of 13 cc MultiHance gadolinium, T1-weighted fat-sat imaging was perfo rmed through the brain in the axial and coronal planes. Thin cut T1-weighted postcontrast imaging was performed through the internal auditory canals in the axial and coronal planes. Findings: There is no acute infarct, intracranial hemorrhage or mass lesion. There are minimal chroni c white matter changes in the periventricular white matter. Ventricles and subarachnoid spaces are unremarkable. Orbits are unremarkable. Paranasal sinuses and m astoid air cells are clear. Major intracranial flow voids are intact. Sagittal midline structures are intact. No abnormality of the internal auditory canals or cerebellopontine angle regions is identified. No abnormal postcontrast enhancement identified. IMPRESSION: No significant abnormality seen. Reviewed, dictated and finalized at location M.
== END ==
PROVIDERS: PCP Family Medicine; Visit Provider Physician Assistant
DX: H93.11 Tinnitus, right ear (principal); R51.9 Headache, unspecified
CPT/HCPCS: 70553; A9577

== ENCOUNTER 2023-08-13 01:10 | Day surgery (SDC) | payer MEDICARE, SELFPAY ==
[2023-07-31 14:52] VITALS: BMI 26.4
[2023-08-13 08:53] VITALS: BP 122/77; PULSE 71; RESP 18; TEMP 36.5
[2023-08-13] MEDS: LACTATED RINGERS 1,000 ML 150 ML IV CONT (09:07)
--- NOTE | 2023-08-13 09:17 | PM.HPGS ---
History of Present Illness History of Present Illness Consent: Risks, benefits, and alternatives have been discussed and questions answered. Patient agrees to proceed with procedure. Chief complaint: Dysphagia,unspecified Narrative: Radha Sal is a 67 year old female Presents for EGD. Patient reports that food will catch in her throat. She states this happens most commonly with solid foods. Patient has a longstanding history of acid reflux. She is currently treated with pantoprazole 40mg p.o. daily. Previously took only 20mg p.o. daily. She notices prompt recurrence of heartburn if she misses this medication for more than 1 or 2 days. Patient's family history is noncontributory. Patient denies any bleeding or weight loss. Review of Systems Review of Systems: Review of systems noncontributory. [facility] Past Medical History Medical History Anxiety Benign essential HTN Costochondral joint sprain Depression GERD (gastroesophageal reflux disease) H/O reduction of open fracture (~03/2020) internal fixation of the left proximal humerus fracture Humerus fracture Mixed hyperlipidemia Seborrheic keratoses, inflamed Shortness of breath Sternoclavicular joint strain Strain of left buttock Surgical History Surgical History History of shoulder surgery Family History Family History Mother Hypertension Family history of malignant neoplasm of kidney Family history of heart disease in male family member before age 55 Other Family history of cardiovascular disease Family history of kidney disease Social History Social History Smoking status: Never smoker Alcohol intake: never Substance use: never Substance use type: does not use Lack of Transportation: No Lack of Food: Never True Current Housing: I Have Housing Concerned About Future Housing: No Difficulty Paying Gas/Electric Bills: No Difficulty Paying for Meds: No Currently Unemployed: No Education: Associate Degree Difficulty w/ Childcare or Family Care: No Living arrangements: with family Spiritual care concerns: No Meds Home Medications and Allergies Home Medications Medication Instructions Recorded Confirmed Type vitamin B complex (B See Rx Instructions PO DAILY 01/27/20 07/31/23 History Complex-Vitamin B12 tablet) aspirin 81 mg tablet,delayed 81 mg PO DAILY 08/29/20 07/31/23 History release icosapent ethyl 1 gram capsule 2 g PO BID 08/29/20 07/31/23 History (Vascepa) ezetimibe 10 mg tablet See Rx Instructions .Route 08/23/22 07/31/23 Rx .COMPLEX #90 tabs carvedilol 12.5 mg tablet 12.5 mg PO Q12H 10/09/22 07/31/23 History eaeyymwc-scy-erxop ac 400 1 tablet PO DAILY 10/09/22 07/31/23 History mcg-calcium carb 500 mg-vit K1 20 mcg tablet (Women's 50 Plus Multivitamin) lisinopril 40 mg tablet See Rx Instructions .Route 10/19/22 07/31/23 Rx .COMPLEX #90 tabs Actonel PO 11/27/22 03/18/23 History albuterol sulfate 90 mcg/actuation 1 puff inhalation ONCE PRN 11/27/22 07/31/23 History aerosol inhaler Shortness Of Breath estradiol 0.01% (0.1 mg/gram) 1 g vaginal 2XW #42.5 grams 11/27/22 07/31/23 Rx vaginal cream (Estrace) hydrochlorothiazide 25 mg tablet See Rx Instructions .Route 02/11/23 07/31/23 Rx .COMPLEX #90 tabs amitriptyline 25 mg tablet 25 mg PO QHS #90 tabs 03/25/23 07/31/23 Rx bupropion HCl 150 mg 24 hr tablet, See Rx Instructions .Route 06/14/23 07/31/23 Rx extended release .COMPLEX #90 tabs omeprazole 40 mg capsule,delayed See Rx Instructions .Route 06/14/23 07/31/23 Rx release .COMPLEX #90 caps rosuvastatin 40 mg tablet 40 mg PO HS #90 tabs 06/14/23 07/31/23 Rx Allergies Allergy/AdvReac Type Severity Reaction Status Date / Time N
--- NOTE | 2023-08-13 10:04 | WPDANESEPPF ---
Anes - Initial Pre Proc Eval Procedure: Operation Date: 08/13/23 10:00 Proposed Procedures p Esophagogastroduodenoscopy - Dany Valente MD Date/Time: 08/13/23 10:04 Surgeon: Dany Valente MD Pre Op Diagnosis: Dysphagia,unspecified Patient Data Age: 67 Gender: F Height: 1.63 m Weight: 63.5 kg Last Vital Signs Temp 97.7 F 08/13/23 08:53 Pulse 71 08/13/23 08:53 Resp 18 08/13/23 08:53 BP 122/77 08/13/23 08:53 O2 Del Method Room Air 08/13/23 08:53 Allergies Allergy/AdvReac Type Severity Reaction Status Date / Time No Known Allergies Allergy Verified 08/13/23 08:50 Home Medications Medication Instructions Recorded Confirmed Type vitamin B complex (B See Rx Instructions PO DAILY 01/27/20 07/31/23 History Complex-Vitamin B12 tablet) aspirin 81 mg tablet,delayed 81 mg PO DAILY 08/29/20 07/31/23 History release icosapent ethyl 1 gram capsule 2 g PO BID 08/29/20 07/31/23 History (Vascepa) ezetimibe 10 mg tablet See Rx Instructions .Route 08/23/22 07/31/23 Rx .COMPLEX #90 tabs carvedilol 12.5 mg tablet 12.5 mg PO Q12H 10/09/22 07/31/23 History fytqrfbl-jeg-ywozl ac 400 1 tablet PO DAILY 10/09/22 07/31/23 History mcg-calcium carb 500 mg-vit K1 20 mcg tablet (Women's 50 Plus Multivitamin) lisinopril 40 mg tablet See Rx Instructions .Route 10/19/22 07/31/23 Rx .COMPLEX #90 tabs Actonel PO 11/27/22 03/18/23 History albuterol sulfate 90 mcg/actuation 1 puff inhalation ONCE PRN 11/27/22 07/31/23 History aerosol inhaler Shortness Of Breath estradiol 0.01% (0.1 mg/gram) 1 g vaginal 2XW #42.5 grams 11/27/22 07/31/23 Rx vaginal cream (Estrace) hydrochlorothiazide 25 mg tablet See Rx Instructions .Route 02/11/23 07/31/23 Rx .COMPLEX #90 tabs amitriptyline 25 mg tablet 25 mg PO QHS #90 tabs 03/25/23 07/31/23 Rx bupropion HCl 150 mg 24 hr tablet, See Rx Instructions .Route 06/14/23 07/31/23 Rx extended release .COMPLEX #90 tabs omeprazole 40 mg capsule,delayed See Rx Instructions .Route 06/14/23 07/31/23 Rx release .COMPLEX #90 caps rosuvastatin 40 mg tablet 40 mg PO HS #90 tabs 06/14/23 07/31/23 Rx Patient hx anesthesia problems: none Family hx anesthesia problems: none Results Review: All pre-operative results and documents have been reviewed as part of the pre-operative evaluation. [facility] Past Medical History Medical History Anxiety Benign essential HTN Costochondral joint sprain Depression GERD (gastroesophageal reflux disease) H/O reduction of open fracture (~03/2020) internal fixation of the left proximal humerus fracture Humerus fracture Mixed hyperlipidemia Seborrheic keratoses, inflamed Shortness of breath Sternoclavicular joint strain Strain of left buttock Surgical History Surgical History History of shoulder surgery Family History Family History Mother Hypertension Family history of malignant neoplasm of kidney Family history of heart disease in male family member before age 55 Other Family history of cardiovascular disease Family history of kidney disease Social History Social History Smoking status: Never smoker Alcohol intake: never Substance use: never Substance use type: does not use Lack of Transportation: No Lack of Food: Never True Current Housing: I Have Housing Concerned About Future Housing: No Difficulty Paying Gas/Electric Bills: No Difficulty Paying for Meds: No Currently Unemployed: No Education: Associate Degree Difficulty w/ Childcare or Family Care: No Living arrangements: with family Spiritual care concerns: No Anes - Eval Final PreProcedure Day of Procedure 08/13/23 10:04 Patient weight: normal Heart: regular rate and rhyth
[2023-08-13 10:16] VITALS: BP 116/70; PULSE 64; RESP 17; O2SAT 100
[2023-08-13 10:26] VITALS: BP 134/84; PULSE 66; RESP 14; O2SAT 100
[2023-08-13 10:36] VITALS: BP 136/82; PULSE 63; RESP 15; O2SAT 100
== END 2023-08-13 10:46 | disposition home or self-care (01) ==
PROVIDERS: PCP Family Medicine; Visit Provider Internal Medicine Gastroenterology
PROC: 0DJ08ZZ Inspection of Upper Intestinal Tract, Via Natural or Artificial Opening Endoscopic (ICD-10-PCS; CPT 43235; principal; 2023-08-13 10:00)
DX: R13.19 Other dysphagia (principal); K21.9 Gastro-esophageal reflux disease without esophagitis; F41.9 Anxiety disorder, unspecified; I10 Essential (primary) hypertension; F32.A Depression, unspecified; E78.2 Mixed hyperlipidemia; L82.0 Inflamed seborrheic keratosis; Z79.82 Long term (current) use of aspirin; Z79.51 Long term (current) use of inhaled steroids
CPT/HCPCS: 43450; J2704; J7120

== ENCOUNTER 2023-08-27 11:00 | Outpatient (CLI) | payer MEDICARE, SELFPAY ==
[2023-08-27 11:14] LABS: Basophils Absolute Auto 0.1 K/mm3 (0.0-0.1); Basophils Percent Auto 0.8 % (0.2-1.2); Eosinophils Absolute Auto 0.5 K/mm3 (0-0.3); Eosinophils Percent Auto 6.9 % (0-4.4); Hematocrit 35.2 % (37.0-47.0); Hemoglobin 11.7 g/dL (12.0-15.0); Immature Granulocyte Absolute 0.03 K/mm3 (0.00-0.031); Immature Granulocyte Percent A 0.5 % (0-0.5); Lymphocytes Absolute Auto 1.76 K/mm3 (0.9-3.2); Lymphocytes Percent Auto 26.6 % (18.3-44.2); Mean Corpuscular HGB Conc 33.2 g/dl (32-36); Mean Corpuscular Hemoglobin 30.5 pg (26-34); Mean Corpuscular Volume 91.7 fl (80-100); Monocytes Absolute Auto 0.7 K/mm3 (0.1-0.6); Monocytes Percent Auto 10.9 % (2.6-8.5); Neutrophils Absolute Auto 3.6 K/mm3 (1.3-6.7); Neutrophils Percent Auto 54.3 % (45.5-73.1); Platelet Count Result 243 k/mm3 (150-375); Red Blood Count 3.84 M/mm3 (4.2-5.4); Red Cell Distribution Width 12.2 % (11.5-14.5); White Blood Count 6.6 K/mm3 (4.5-10.0)
[2023-08-27 17:05] LABS: Anion Gap 8 mmol/L (8-16); Blood Urea Nitrogen 18 mg/dL (7-17); Calcium 9.6 mg/dL (8.4-10.2); Carbon Dioxide 28 mmol/L (22-30); Chloride 101 mmol/L (98-107); Estimated Glomerular Filt Rate > 60; Glucose 91 mg/dL (65-110); Potassium 3.8 mmol/L (3.4-5.0); Sodium 137 mmol/L (137-145)
[2023-08-27 17:13] LABS: Iron 97 ug/dL (37-170); Percent Iron Saturation 31 % (20-50)
[2023-08-27 18:11] LABS: Folic Acid 18.7 ng/mL (2.76->20)
== END 2023-08-27 11:01 | disposition home or self-care (01) ==
LOC: ANHLAB 11:02
PROVIDERS: PCP Family Medicine; Visit Provider Internal Medicine Hematology & Oncology
DX: D64.9 Anemia, unspecified (principal)
CPT/HCPCS: 36415; 80048; 82607; 82728; 82746; 83540; 83550; 85025

== ENCOUNTER 2023-12-19 09:37 | Outpatient (CLI) | payer MEDICARE, SELFPAY ==
[2023-12-19 18:33] LABS: Kit Draw Collected
== END 2023-12-19 09:38 | disposition home or self-care (01) ==
LOC: ANHGOSHLAB 09:39
PROVIDERS: PCP Family Medicine; Visit Provider Nurse Practitioner Family
DX: E78.2 Mixed hyperlipidemia (principal); E55.9 Vitamin D deficiency, unspecified; I10 Essential (primary) hypertension; Z11.59 Encounter for screening for other viral diseases; Z79.899 Other long term (current) drug therapy
CPT/HCPCS: 36415

== ENCOUNTER 2024-06-29 15:45 | Outpatient (CLI) | payer MEDICARE, SELFPAY ==
--- NOTE | ~2024-06-29 | CT_ITS ---
EXAMINATION: CT brain wo con DATE: 06/29/2024 16:18 INDICATION: Acute posttraumatic headache. Not intractable. TECHNIQUE: Computed tomography (CT) of the head was performed without intravenous contrast. The mA wa s adjusted according to patient size. Iterative reconstruction technique was employed. The dose-lengt h product was 605.33 mGy-cm. COMPARISON: Head CT 11/20/17, brain MRI 04/23/2023 FINDINGS: There is no intracranial hemorrhage, acute infarction, or abnormal intracranial mass lesion . There are scattered areas of low attenuation in the cerebral white matter, which is within normal l imits for the patient's age. The ventricles are normal in size. The orbits are normal. The paranasal sinuses are clear. The mastoid air cells are normal. IMPRESSION: 1. Normal aging brain. Reviewed, dictated and finalized at location A. IMPRESSION: 1. Normal aging brain.
--- NOTE | ~2024-06-29 | XR_ITS ---
EXAMINATION: XR shoulder RT min 2V DATE: 06/29/2024 16:09 INDICATION: Right shoulder pain. Fall. TECHNIQUE: 4 views of right shoulder were obtained. COMPARISON: None. FINDINGS: Bone alignment is normal. No fracture. There is severe osteoarthritis of acromioclavicular joint. Glenohumeral joint is normal. IMPRESSION: 1. Severe osteoarthritis of acromioclavicular joint. Reviewed, dictated and finalized at location A.
== END 2024-06-29 15:46 | disposition home or self-care (01) ==
PROVIDERS: PCP Family Medicine; Visit Provider Student in an Organized Health Care Education/Training Program
DX: G44.319 Acute post-traumatic headache, not intractable (principal); M19.011 Primary osteoarthritis, right shoulder
CPT/HCPCS: 70450; 73030

== ENCOUNTER 2024-07-02 11:46 | Outpatient (CLI) | payer MEDICARE, SELFPAY ==
--- NOTE | ~2024-07-02 | MR_ITS ---
EXAMINATION: MR shoulder RT wo con DATE: 07/02/2024 12:23 INDICATION: Right shoulder injury with generalized right shoulder pain and limited range of motion po st fall 4 days prior TECHNIQUE: Magnetic resonance imaging (MRI) of the right shoulder was performed without intravenous c ontrast. Sequences included axial PD-weighted FS FSE, coronal oblique PD-weighted FS FSE, coronal obl ique T2-weighted FS FSE, sagittal PD-weighted FS FSE, and sagittal T1-weighted SE. COMPARISON: None. FINDINGS: Coracoacromial arch: The acromion undersurface is curved in morphology (type II). The coracoacromial ligament is normal. M ild acromioclavicular osteoarthritis. Rotator cuff: Mild supraspinatus and infraspinatus tendinopathy. There is a tiny intrasubstance tear at the greater tuberosity footplate of the conjoined portion of the supraspinatus and infraspinatus tendons which m easures 3 mm AP and involves less than one third of the tendon thickness. The teres minor and subscap ularis tendons are normal. Normal rotator cuff muscle bulk and signal. Biceps tendon, glenoid labrum and glenohumeral cartilage: Long head of the biceps tendon is normal. Glenoid labrum is normal. Glenohumeral cartilage is normal. Fluid: Physiologic amount of fluid in the glenohumeral joint and biceps tendon sheath. No loose osteochondr al bodies. No abnormal fluid signal in the subacromial/subdeltoid bursa to suggest bursitis. There i s mild subcutaneous edema in the fat overlying the deltoid muscle likely related to posttraumatic con tusion. Bones: Bone alignment is normal. No fracture or pathologic marrow replacing process. IMPRESSION: 1. Mild supraspinatus and infraspinatus tendinopathy with tiny intrasubstance tear at the footplate o f the conjoined portion of the tendons. 2. Mild acromioclavicular osteoarthritis. 2. Subcutaneous edema most likely related to posttraumatic contusion in the fat overlying the deltoid muscle. Reviewed, dictated and finalized at location A. IMPRESSION: 1. Mild supraspinatus and infraspinatus tendinopathy with tiny intrasubstance t ear at the footplate of the conjoined portion of the tendons. 2. Mild acromioclavicular osteoarthritis. 2. Subcutaneous edema most likely related to posttraumatic contusion in the fat overlying the deltoid muscle.
== END 2024-07-02 11:47 ==
LOC: MICIMG 11:47
PROVIDERS: PCP Family Medicine; Visit Provider Student in an Organized Health Care Education/Training Program
DX: M19.011 Primary osteoarthritis, right shoulder (principal); M67.813 Other specified disorders of tendon, right shoulder; S46.811A Strain of other muscles, fascia and tendons at shoulder and upper arm level, right arm, initial encounter; X58.XXXA Exposure to other specified factors, initial encounter
CPT/HCPCS: 73221

== ENCOUNTER 2024-08-27 13:03 | Outpatient (CLI) | payer MEDICARE, SELFPAY ==
[2024-08-27 13:21] LABS: Basophils Absolute Auto 0.1 K/mm3 (0.0-0.1); Eosinophils Absolute Auto 0.4 K/mm3 (0-0.3); Eosinophils Percent Auto 6.2 % (0-4.4); Hematocrit 33.2 % (37.0-47.0); Hemoglobin 10.9 g/dL (12.0-15.0); Immature Granulocyte Absolute 0.01 K/mm3 (0.00-0.031); Immature Granulocyte Percent A 0.2 % (0-0.5); Lymphocytes Absolute Auto 1.98 K/mm3 (0.9-3.2); Mean Corpuscular HGB Conc 32.8 g/dl (32-36); Mean Corpuscular Hemoglobin 29.5 pg (26-34); Mean Platelet Volume 9.3 fl (7.4-10.4); Monocytes Absolute Auto 0.7 K/mm3 (0.1-0.6); Monocytes Percent Auto 11.3 % (2.6-8.5); Neutrophils Absolute Auto 2.8 K/mm3 (1.3-6.7); Neutrophils Percent Auto 47.3 % (45.5-73.1); Platelet Count Result 229 k/mm3 (150-375); Red Blood Count 3.69 M/mm3 (4.2-5.4); Red Cell Distribution Width 12.5 % (11.5-14.5); White Blood Count 5.8 K/mm3 (4.5-10.0)
[2024-08-27 16:48] LABS: Iron 76 ug/dL (37-170)
[2024-08-27 16:52] LABS: Alanine Aminotransferase 21 U/L (6-35); Albumin Level 4.5 g/dL (3.5-5.1); Alkaline Phosphatase 47 U/L (38-126); Anion Gap 8 mmol/L (4-12); Aspartate Amino Transferase 30 U/L (14-36); Bilirubin,Total 0.5 mg/dL (0.2-1.3); Blood Urea Nitrogen 13 mg/dL (7-17); Calcium 9.7 mg/dL (8.4-10.2); Carbon Dioxide 30 mmol/L (22-30); Chloride 100 mmol/L (98-107); Estimated Glomerular Filt Rate > 60; Glucose 81 mg/dL (65-110); Potassium 3.3 mmol/L (3.4-5.0); Sodium 138 mmol/L (137-145)
[2024-08-27 17:02] LABS: Percent Iron Saturation 24 % (20-50)
[2024-08-27 17:58] LABS: Folic Acid 17.6 ng/mL (2.76->20)
== END 2024-08-27 13:04 | disposition home or self-care (01) ==
LOC: ANHLAB 13:04
PROVIDERS: PCP Family Medicine; Visit Provider Internal Medicine Hematology & Oncology
DX: D64.9 Anemia, unspecified (principal)
CPT/HCPCS: 36415; 80053; 82607; 82728; 82746; 83540; 83550; 85025

== ENCOUNTER 2024-09-25 12:39 | Outpatient (CLI) | payer MEDICARE, SELFPAY ==
--- NOTE | 2024-09-25 13:01 | ECHO_ITS ---
Patient Info Name: Radha Sal Age: 68 years : 1955 Gender: Female Ht: 64 in Wt: 142 lbs BSA: 1.72 m2 HR: 66 bpm BP: 147 / 82 mmHg Technical Quality: Fair Exam Date: 09/25/2024 1:11 PM Exam Location: Echo Lab Patient Status: Outpatient Admit Date: 09/25/2024 Staff Ordering Physician: Sophy Vera MD Primer Press Operator: Tierney Cao RDCS Attending Provider: Sophy Vera MD Referring Physician: Chuy STEEN; Exam Type: CA echo doppler color flow Study Info Indications - Thoracic Aortic Estasia Complete two-dimensional, color flow and Doppler transthoracic echocardiogram is performed. Summary 1. Complete two-dimensional, color flow and Doppler transthoracic echocardiogram is performed. 2. Left ventricular wall thickness is moderately increased. 3. Left ventricular systolic function is normal with an ejection fraction by Biplane Method of Discs of 54 %. 4. Left ventricular chamber dimension is normal. 5. The left ventricular diastolic function is grade I diastolic dysfunction. 6. Right ventricular chamber dimension is normal. 7. Right ventricular systolic function is normal. 8. There is no aortic valve stenosis with a peak velocity of 108 cm/s, mean gradient of 3 mmHg, and aortic valve area of 2.3 cm2. Left Ventricle Left ventricular chamber dimension is normal. Left ventricular systolic function is normal with an ejection fraction by Biplane Method of Discs of 54 %. Left ventricular wall thickness is moderately increased. The left ventricular diastolic function is grade I diastolic dysfunction. Right Ventricle Right ventricular chamber dimension is normal. Right ventricular systolic function is normal. Left Atria Left atrial chamber dimension is normal. Right Atria Right atrial chamber dimension is normal. Aortic Valve The aortic valve is trileaflet. There is no aortic valve stenosis with a peak velocity of 108 cm/s, mean gradient of 3 mmHg, and aortic valve area of 2.3 cm2. There is no aortic valve regurgitation. Mitral Valve The mitral valve has normal leaflets. There is no mitral valve regurgitation. There is no mitral valve stenosis. Tricuspid Valve There is mild tricuspid valve regurgitation. Inferior Vena Cava Normal inferior vena cava with >50% collapse upon inspiration consistent with normal right atrial pressure, 3 mmHg. Aorta The aortic root size at the sinus of Valsalva is normal. The prox ascending aorta size is normal. Left Ventricular Outflow Tract Name Value Normal LVOT 2D LVOT Diameter 1.9 cm LVOT Doppler LVOT Peak Gradient 4 mmHg LVOT Mean Gradient 2 mmHg LVOT VTI 21 cm LVOT VTI/AV VTI Ratio 0.8 LVOT Stroke Volume 59 ml LVOT CO 3.4 l/min LVOT CI 2.0 l/min/m2 Pulmonic Valve Name Value Normal RVOT Doppler RVOT Peak Gradient 2 mmHg PV Doppler PV Peak Gradient 2 mmHg Mitral Valve Name Value Normal MV Doppler MV Peak Gradient 2 mmHg MV Mean Gradient 1 mmHg MV Decel [place] 311 cm/s2 MV PHT 61 ms MV Area (PHT) 3.6 cm2 4.0-5.0 MV Area (Cont Eq VTI) 2.3 cm2 MV Diastolic Function MV E Peak Velocity 65 cm/s MV A Peak Velocity 79 cm/s MV E/A 0.8 MV Decel Time 209 ms MV Annular TDI MV E/e' (Septal) 11.2 <=8.0 MV E/e' (Lateral) 9.6 <=8.0 MV E/e' (Average) 10.4 Tricuspid Valve Name Value Normal Estimated PAP/RSVP RA Pressure 3 mmHg <=5 Aorta Name Value Normal Ascending Aorta Ao Root Diameter (MM) 3.3 cm Ao Root Diam Index (MM) 1.9 cm/m2 Aortic Valve Name Value Normal AV Doppler AV Peak Velocity 108 cm/s AV Peak Gradient 5 mmHg AV Mean Gradient 3 mmHg AV VTI 26 cm AV Area (Cont Eq VTI) 2.3 cm2 >=3.0 AV Area (Cont Eq Fortino) 2.5 cm2 AV Regurgitation 2D LVOT Area 2.8 cm2 Ventricles Name Value Normal LV Dimensions 2D/MM IVS Diastolic Thickness (2D) 1.6 cm 0.6-1.0 LVID Diastole (2D) 3.4 cm 3.8-5.2 LVIW Diastolic Thickness (2D) 1.3 cm 0.6-0.9 LVID Systole (2D) 2.4 cm 2.2-3.5 LVOT Diameter 1.9 cm LV Mass (2D Cubed) 175.32 g 67.00-162.00 LV Mass Index (2D Cubed) 102 g/m2 43-95 Relative Wall Thickness (2D) 0.77 LV Fractional Shortening/Ejection Fraction 2D/MM LV Fractional Shortening (2D) 31 % 27-45 LV EF (2D Teicholz) 60 % 54-74 LV Diastolic Volume (4C MOD) 89 ml LV EF (4C MOD) 46 % LV Diastolic Volume (2C MOD) 64 ml LV EF (2C MOD) 65 % LV Diastolic Volume (BP MOD) 76 ml 46-106 LV Diastolic Volume Index (BP MOD) 44 ml/m2 29-61 LV Systolic Volume (BP MOD) 35 ml 14-42 LV Systolic Volume Index (BP MOD) 20 ml/m2 8-24 LV EF (BP MOD) 54 % 54-74 LV Diastolic Length (4C) 6.6 cm LV Systolic Length (4C) 6.0 cm LV Stroke Volume (4C MOD) 41 ml Atria Name Value Normal LA Dimensions LA Dimension (MM) 3.4 cm 2.7-3.8 LA Volume (4C A-L) 30 ml LA Volume (BP A-L) 46 ml RA Dimensions RA Area (4C) 14.5 cm2 <=18.0 Report Signatures
== END 2024-09-25 12:40 | disposition home or self-care (01) ==
LOC: ANHCARD 12:42
PROVIDERS: PCP Family Medicine; Visit Provider Family Medicine
DX: I77.810 Thoracic aortic ectasia (principal); I51.89 Other ill-defined heart diseases
CPT/HCPCS: 93306

== ENCOUNTER 2024-12-22 14:37 | Outpatient (CLI) | payer MEDICARE, SELFPAY ==
--- OUTSIDE RECORDS SUMMARY | 2024-12-22 14:42 | XMS_ITS | Referral Summary ---
Author Organization [facility] Address [address] [place] [address] Care Team Providers Care Forensic Pathologist Name Role Phone Sophy Vera MD Primary Care Provider + Encounters Date Type Department Care Team Description 09/28/2024 Telephone [facility] Medical Group Cardiology [address] [place] [address] order change 09/25/2024 2:30 PM GLASS GRINDER Office Visit [facility] Medical Group Cardiology at [address] [place] [address] Miles Ferguson MD Essential (primary) hypertension; Hyperlipidemia, unspecified hyperlipidemia type; Aortic aneurysm without rupture, unspecified portion of aorta (HCC) from Last 3 Months Medications hydroCHLOROthia zide (HYDRODIURIL) 25 mg tablet take 1 Tablet by oral route every day 0 0 06/07/2014 Active omeprazole (PriLOSEC) 40 mg capsule Take 1 capsule (40 mg total) by mouth every morning 3 08/09/2018 Active cyanocobalamin (Vitamin B-12) 2,500 mcg tablet, sublingualIndic ations:Preventi on of Vitamin B12 Deficiency Take 1 tablet (2,500 mcg total) by mouth once a week Active risedronate (ACTONEL) 150 mg tabletIndicatio ns:osteopenia Take 1 tablet by mouth every 30 (thirty) days 2019 Active ezetimibe (ZETIA) 10 mg tablet Take 1 tablet (10 mg total) by mouth every morning 01/11/2020 Active aspirin 81 mg enteric coated tablet Take 1 tablet (81 mg total) by mouth daily Active ergocalciferol (VITAMIN D) 50,000 unit capsule Take 1 capsule (50,000 Units total) by mouth 3 (three) times a week Active buPROPion XL (WELLBUTRIN XL) 150 mg 24 hr tablet Take 1 tablet (150 mg total) by mouth daily Active icosapent ethyL (VASCEPA) 1 gram capsule Take 2 capsules (2 g total) by mouth 2 (two) times a day Active amitriptyline (ELAVIL) 25 mg tablet Take 1 tablet (25 mg total) by mouth nightly Active carvediloL (COREG) 6.25 mg tablet Take 1 tablet (6.25 mg total) by mouth 2 (two) times a day with meals Active rosuvastatin (CRESTOR) 40 mg tablet Take 1 tablet (40 mg total) by mouth daily Active lisinopriL (PRINIVIL,ZESTR IL) 40 mg tablet Take 1 tablet (40 mg total) by mouth daily Active estradioL (ESTRACE) 0.01 % (0.1 mg/gram) vaginal cream Insert 2 g into the vagina daily Active Active Problems Problem Noted Date Diagnosed Date Left arm pain 06/22/2020 Assessment & Plan (02/09/2021 3:11 PM CDT): Ms. Dial has improvement in her left arm pain. This seems related to her orthopedic surgery and not related to radicular neck pain. She has some right shoulder problems and some arthritis in her right hand as well. She has some spondylosis at C6-7 which does not seem to be the cause of her symptoms. We will not set up a scheduled appointment, but I would be happy to see her back at any point on as-needed basis. Assessment & Plan (06/22/2020 1:15 PM CDT): Ms. Dial has significant left arm pain that extends down to the wrist of her left arm. She has lot of swelling of the arm after her fracture and surgical repair. I am not sure that any of this is related to the neck. She does have some spondylosis at C6-7 which is not likely causing the symptoms. We will get AP and flexion- extension cervical spine films to rule out any instability. We will get AP and lateral lumbar and thoracic spine films to look for any compression fractures that were not diagnosed at the time of the injury. Consideration was given to any EMG/nerve conduction study of left upper extremity but given the amount of swelling that she has in the arm, it is not likely to give her but viable data at this point. I plan to see her back in six months for re-evaluation. Acute pain of left shoulder 03/02/2020 Overview (03/02/2020): Added automatically from request for surgery [id number] Closed fracture of left proximal humerus 020 Overview (03/02/2020): Added automatically from request for surgery [id number] Iron deficiency anemia 06/19/2019 Osteoarthritis of hip 09/17/2017 Arthralgia of hip 03/04/2017 Normocytic normochromic anemia 08/04/2013 Acid indigestion Anemia Social History Tobacco Use Types Packs/Day Years Used Date Smoking Tobacco: Never Smokeless Tobacco: Never Alcohol Use Standard Drinks/Week Comments Yes 0 (1 standard drink = 0.6 oz pur e alcohol) Occasionally PHQ-2 Answer Date Recorded PHQ-2 Total Score (If total score is 3 or more points, staff should administer the PHQ-9) 3 06/22/2020 Comments No Sex and Gender Information Value Date Recorded Sex Assigned at Not on file Legal Sex Female 4:27 AM GLASS GRINDER Gender Identity Not on file Sexual Orientation Not on file 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 Not on file Not on file Last Filed Vital Signs Vital Sign Reading Time Taken Comments Blood Pressure 126/80 09/25/2024 2:22 PM GLASS GRINDER Pulse 72 09/25/2024 2:22 PM GLASS GRINDER Temperature 36.2 C (97.2 F) 03/03/2020 3:00 PM CDT Respiratory Rate 12 06/22/2020 12:02 PM CDT Oxygen Saturation 97% 09/25/2024 2:22 PM GLASS GRINDER Inhaled Oxygen Concentration - - Weight 64.9 kg (143 lb) 09/25/2024 2:22 PM GLASS GRINDER Height 162.6 cm (5' 4 ) 09/25/2024 2:22 PM GLASS GRINDER Body Mass Index 24.55 09/25/2024 2:22 PM GLASS GRINDER Plan of Treatment Not on file Medical Devices Implanted Type Area Rules Examiner Device Identifier Shelf Expiration Date Model / Serial / Lot Synthes 241.901 Lcp Combi Philos 25h37l0.5mm 3 Hole Shaft Lock Compression - S0 - [id number] Implanted:Qty: 1 on 03/03/2020 at [facility] Plate Left: Humerus Synthes I 241.901 / 0 / 0 Synthes 206.035 4mm 6mm 35mm Small Hexagonal Socket Cancellous Full Thread Screw - S0 - [id number] Implanted:Qty: 1 on 03/03/2020 by Felton Fontanez MD at [facility] Screw Left: Humerus Synthes I 206.035 / 0 / 0 Synthes 212.114 3.5mm 2.9mm 35mm Self Tap Lock Stardrive Conical Head T15 Full - S0 - [id number] Implanted:Qty: 1 on 03/03/2020 by Felton Fontanez MD at [facility] Screw Left: Humerus Synthes I 212.114 / 0 / 0 Synthes 204.826 3.5mm 6mm 26mm 2.5mm Self Tap Small Hexagonal Socket Low Profile - S0 - [id number] Implanted:Qty: 1 on 03/03/2020 by Felton Fontanez MD at [facility] Screw Left: Humerus Synthes I 204.826 / 0 / 0 Synthes 212.119 3.5mm 2.9mm 45mm Self Tap Lock Stardrive Conical Head T15 Full - S0 - [id number] Implanted:Qty: 1 on 03/03/2020 by Felton Fontanez MD at [facility] Screw Left: Humerus Synthes I 212.119 / 0 / 0 Synthes 212.134 3.5mm 2.9mm 44mm Self Tap Lock Stardrive Conical Head T15 Full - S0 - [id number] Implanted:Qty: 3 on 03/03/2020 by Felton Fontanez MD at [facility] Screw Left: Humerus Synthes I 212.134 / 0 / 0 Synthes 212.118 3.5mm 2.9mm 42mm Self Tap Lock Stardrive Conical Head Full Thread - S0 - [id number] Implanted:Qty: 1 on 03/03/2020 by Felton Fontanez MD at [facility] Screw Left: Humerus Synthes I 212.118 / 0 / 0 Synthes 204.828 3.5mm 6mm 28mm 2.5mm Self Tap Small Hexagonal Socket Low Profile - S0 - [id number] Implanted:Qty: 1 on 03/03/2020 by Felton Fontanze MD at [facility] Screw Left: Humerus Synthes I 204.828 / 0 / 0 Explanted Type Area Rules Examiner Device Identifier Shelf Expiration Date Model / Serial / Lot [employer] [id number] Steinmann 3/32in 9in 2 Trocar Pin Fixation Nonsterile - S0 - [id number] Explanted:Qty: 3 on 03/03/2020 at [facility] Other - see comments Left: Humerus [employer] 1624-109N S / 0 / Synthes 292.16 Darby 1.6mm 150mm Trocar Tip Wire Fixation Stainless Steel - S0 - [id number] Explanted:Qty: 3 on 03/03/2020 by Felton Fontanez MD at [facility] Wire Left: Humerus Synthes I 292.16 / 0 / 0 Description:Provisional Fixa tion Procedures Procedure Name Priority Date/Time Associated Diagnosis Comments ELECTROCARDIOGRAM REPORT Routine 024 3:23 PM GLASS GRINDER Aortic aneurysm without rupture, unspecified portion of aorta (HCC) from Last 3 Months Results * Electrocardiogram Report (09/25/2024 3:23 PM GLASS GRINDER) Miles Ferguson MD ECG ORDERABLES Edited R esult - Final from Last 3 Months Insurance [employer] [facility] HMO 1972 [place] [id number] [facility] [address] [place] [id number] [facility] [employer] MEDICARE GOLD Care Teams Forensic Pathologist Relationship Specialty Start Date End Date Sophy Vera MD [address] [place] [address] [place] [address] PCP - General Family Medicine 09/25/24
--- OUTSIDE RECORDS SUMMARY | 2024-12-22 14:42 | XMS_ITS | Clinical Summary ---
Author Organization [facility] Address [address] [place] [id number] Care Team Providers Care Dispatcher Maintenance Service Name Role Phone Sophy Vera MD Primary Care Provider [phone] Allergies No known active allergies Medications hydrocodone-acet aminophen 5-325 MG tablet Take 1 tablet by mouth every 6 (six) hours as needed. 10 tablet 03/08/2019 Active Social History Tobacco Use Types Packs/Day Years Used Date Smoking Tobacco: Never Smokeless Tobacco: Never Tobacco Cessation:Counseling Given: Not Answered Alcohol Use Standard Drinks/Week Comments Never 0 (1 standard drink = 0.6 oz pur e alcohol) Comments No Sex and Gender Information Value Date Recorded Sex Assigned at Not on file Legal Sex Female 4:09 PM CDT Gender Identity Not on file Sexual Orientation Not on file Last Filed Vital Signs Vital Sign Reading Time Taken Comments Blood Pressure 108/59 10/02/2023 4:35 PM POPULATION GENETICIST Pulse 65 10/02/2023 4:35 PM POPULATION GENETICIST Temperature 36.3 C (97.4 F) 10/02/2023 2:08 PM POPULATION GENETICIST Respiratory Rate 15 10/02/2023 4:35 PM POPULATION GENETICIST Oxygen Saturation 100% 10/02/2023 4:35 PM POPULATION GENETICIST Inhaled Oxygen Concentration - - Weight 64.9 kg (143 lb) 10/02/2023 2:08 PM POPULATION GENETICIST Height 162.6 cm (5' 4 ) 10/02/2023 2:08 PM POPULATION GENETICIST Body Mass Index 24.55 10/02/2023 2:08 PM POPULATION GENETICIST Plan of Treatment Health Maintenance Due Date Last Done Comments Colorectal Cancer Screening Colonoscopy (10 Years) 1955 Hepatitis C 1975 DTaP, Tdap and Td Vaccines ( 1 - Tdap) 1976 Mammogram Screening 1997 Zoster Vaccines (1 of 2) 2007 Annual Medicare Wellness Visit 2022 Dexa Scan (General) 2022 Pneumococcal Vaccine: 65+ Years (1 of 1 - PCV) 2022 COVID-19 Vaccine (3 - 2023-2 5 season) 2024 04/17/2022, 01/09/2021 Influenza Adult (#1) 2024 10/06/2020 RSV Immunization or 60+ Years (1 - 1-dose 75+ series) 2032 Meningococcal B Vaccine Aged Out No l onger eligible based on patient's age to complete this topic Meningococcal Vaccine Aged Out No vladimir estefani eligible based on patient's age to complete this topic RSV Immunizations Under 20 Months Aged Out No longer eligible b ased on patient's age to complete this topic Insurance [employer] Care Teams Dispatcher Maintenance Service Relationship Specialty Start Date End Date Sophy Vera MD [facility] [facility] [facility] [address] [place] [id number] PCP - General FAMILY PRACTICE 10/02/23
--- OUTSIDE RECORDS SUMMARY | 2024-12-22 14:42 | XMS_ITS | Clinical Summary ---
Author Organization [facility] Address [address] [facility] [place] [address] Care Team Providers Care Direct Care Counselor Name Role Phone Sophy Vera MD Primary Care Provider [phone] Allergies No known active allergies Medications omeprazole (PriLOSEC) 40 mg Capsule, Delayed Release(E.C.) Take 40 mg by mouth daily. Active hydroCHLOROthia zide 25 mg tablet Take 25 mg by mouth daily. Active lisinopril (PRINIVIL) 20 mg tablet Take 20 mg by mouth daily. Active ezetimibe (ZETIA) 10 mg tablet Take 10 mg by mouth daily. Active cyanocobalamin (vit B-12) 2,[address] 2,500 mcg under tongue. Active melatonin 10 mg Tablet Take by mouth nightly as needed. Active aspirin (DORYS CHEWABLE) 81 mg Tablet, Chewable Take 81 mg by mouth daily. Active risedronate (ACTONEL) 150 mg Tablet TAKE 1 TABLET BY MOUTH MONTHLY 09/20/2019 Active ibuprofen (MOTRIN) 200 mg tablet Take 800 mg by mouth. Active cholecalciferol , Vitamin D3, 2,000 unit Tablet take 1 by Oral route once 06/07/2014 Active acetaminophen 500 mg tablet 500 mg. 06/07/2014 Activ e omeprazole (PriLOSEC) 20 mg Capsule, Delayed Release(E.C.) 20 mg. 06/07/2014 Activ e Melatonin 1 mg/4 mL Drops Take by mouth. Active cyanocobalamin Powder Take by mouth. Active diazePAM (VALIUM) 2 mg tablet TAKE 1 TABLET BY MOUTH EVERY 4 TO 6 HOURS NEEDED FOR MUSCLE SPASMS 02/17/2020 Active amitriptyline (ELAVIL) 10 mg tablet Take 10 mg by mouth daily at bedtime. 02/03/2020 Active rosuvastatin (CRESTOR) 40 mg tablet Take 40 mg by mouth daily at bedtime. 07/08/2020 Active carvediloL (COREG) 6.25 mg tablet 25 mg. 07/21/2020 Active Vascepa 1 gram Capsule TAKE 2 CAPSULES BY MOUTH TWICE A DAY 10/16/2020 Active ergocalciferol (VITAMIN D2) 50,000 unit capsule TAKE 1 CAPSULE BY MOUTH WEEKLY 08/29/2020 Active buPROPion (WELLBUTRIN) 75 mg tablet Take 75 mg by mouth 2 times daily. Active Active Problems Problem Noted Date Diagnosed Date Iron deficiency anemia 06/19/2019 Encounters Date Type Department Care Team Description 11/25/2024 External Device Data [facility] ABSTRACTION Provider, Abstract 11/25/2024 External Device Data [facility] ABSTRACTION Provider, Abstract 11/18/2024 External Device Data [facility] ABSTRACTION Provider, Abstract from Last 3 Months Family History Medical History Relation Name Comments Cancer Father Cancer Mother Heart Disease Sister 1 Diabetes Sister 2 Relation Name Status Comments Brother Alive Father Mother Alive Sister 1 Alive Sister 2 Alive Sister 3 Alive Social History Tobacco Use Types Packs/Day Years Used Date Smoking Tobacco: Never Smokeless Tobacco: Never Tobacco Cessation:Counseling Given: Not Answered Alcohol Use Standard Drinks/Week Comments Not Currently 0 (1 standard drink = 0.6 oz pur e alcohol) Comments No Sex and Gender Information Value Date Recorded Sex Assigned at Not on file Legal Sex Female 1:21 PM CDT Gender Identity Not on file Sexual Orientation Not on file Last Filed Vital Signs Vital Sign Reading Time Taken Comments Blood Pressure 127/79 08/28/2024 11:02 AM CDT Pulse 75 08/28/2024 11:02 AM CDT Temperature 36.8 C (98.2 F) 08/28/2024 11:02 AM CDT Respiratory Rate 16 08/28/2024 11:02 AM CDT Oxygen Saturation 91% 08/28/2024 11:02 AM CDT Inhaled Oxygen Concentration - - Weight 65.3 kg (144 lb) 08/28/2024 11:02 AM CDT Height 162.6 cm (5' 4 ) 01/17/2023 2:11 PM CDT Body Mass Index 24.72 01/17/2023 2:11 PM CDT Plan of Treatment Upcoming Encounters Date Type Department Care Team (Late st Contact Info) Description 02/26/2025 11:15 AM CDT Office Visit [facility] Oncology and Hematology [facility] [address] [place] [address] Kirt Rosario MD [address] [address] [place] [address] Health Maintenance Due Date Last Done Comments DTAP/TDAP/TD VACCINES (1 - Tdap) 1976 BREAST CANCER SCREENING 1997 FIT-DNA Q 3 years 2002 FIT/FOBT Q 1 year 2002 Flex Sig/CT Colonography Q 5 years 2002 PNEUMOCOCCAL VACCINE 65+ YEARS (1 of 1 - PCV) 12/17/19 08 ZOSTER VACCINE (1 of 2) 2007 OSTEOPOROSIS SCREENING 2022 INFLUENZA VACCINE (#1) 2024 COLORECTAL SCREENING 07/09/2029 07/09/2019 Colorectal Cancer Screening 07/09/2029 RSV VACCINE (60+ or ) (1 - 1-dose 75+ series) 2032 Insurance [address] [place] [address] [facility] [id number] [facility] [place] [id number] Care Teams Direct Care Counselor Relationship Specialty Start Date End Date Sophy Vera MD [address] [facility] [address] [place] [address] PCP - General Family Practice 04/25/23
--- OUTSIDE RECORDS SUMMARY | 2024-12-22 14:42 | XMS_ITS | Clinical Summary ---
Author Organization [facility] Address [address] [place] [address] Care Team Providers Care Plant Worker Name Role Phone Sophy Vera MD Primary Care Provider + Medications hydroCHLOROthia zide (HYDRODIURIL) 25 mg tablet [...] (03/02/2020): Added automatically from request for surgery [id number] Closed fracture of left proximal humerus 020 Overview (03/02/2020): Added automatically from request for surgery [id number] Iron deficiency anemia 06/19/2019 Osteoarthritis of hip 09/17/2017 Arthralgia of hip 03/04/2017 Normocytic normochromic anemia 08/04/2013 Acid indigestion Anemia Encounters Date Type Department Care Team Description 09/28/2024 Telephone [facility] Cardiology [address] [address] [place] [id number] order change 09/25/2024 2:30 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 Office Visit [facility] Cardiology at [address] [place] [address] Miles Ferguson MD Essential (primary) hypertension; Hyperlipidemia, unspecified hyperlipidemia type; Aortic aneurysm without rupture, unspecified portion of aorta (HCC) from Last 3 Months Surgical History Surgery Date Site/Laterality Comments TRIGGER FINGER RELEASE 11/04/2015 - 11/03/2016 Right TOTAL HIP ARTHROPLASTY 11/04/2017 - 11/03/2018 Left COLONOSCOPY ESOPHAGOGASTRODUODENOSCOPY ORIF HUMERUS FRACTURE 02/03/2020 - 03/03/2020 Left Medical History Medical History Date Comments Hypertension Hyperlipidemia Acid indigestion Anemia Severe Depression Osteopenia Migraines Arthritis Family History Medical History Relation Name Comments Valvular heart disease Brother Valromariou lar heart disease; Heart attack Maternal Grandfather Myocard ial infarction; Cause of : Myocardial infarction Heart failure Mother Congestive hea rt failure; Valvular heart disease Mother Valvu lar heart disease; Anesthesia problems Neg Hx Relation Name Status Comments Brother Maternal Grandfather Mother Social History Tobacco Use Types Packs/Day Years [...] on file Legal Sex Female 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 Gender Identity Not on file Sexual Orientation Not on file 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 Not on file Not on file Obstetrics History Last Filed Vital Signs Vital Sign Reading Time Taken Comments Blood Pressure 126/80 09/25/2024 2:22 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 Pulse 72 09/25/2024 2:22 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 Temperature 36.2 C (97.2 F) 03/03/2020 3:00 PM CDT Respiratory Rate 12 06/22/2020 12:02 PM CDT Oxygen Saturation 97% 09/25/2024 2:22 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 Inhaled Oxygen Concentration - - Weight 64.9 kg (143 lb) 09/25/2024 2:22 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 Height 162.6 cm (5' 4 ) 09/25/2024 2:22 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 Body Mass Index 24.55 09/25/2024 2:22 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 Plan of Treatment Health Maintenance Due Date Last Done Comments Breast Cancer Screening-Mammogram 1957 Colon Cancer Screening-Colonoscopy 1955 Hepatitis C Screening 1957 Osteoporosis Screening-Bone Density Scan 1957 DTaP/Tdap/Td Vaccine (1 - Tdap) 1968 Hepatitis B Screening 1975 Zoster Vaccine (1 of 2) 2007 Fall Risk Assessment 03/03/2021 03/03/2020 Depression Screening 06/22/2021 06/22/2020, 06/22/20 20 Pneumococcal vaccine 65+ (1 of 1 - PCV) 2022 Well Visit 65+ 2022 Influenza Vaccine (#1) 2024 10/06/2020 Medical Devices Implanted Type Area Transition Mgr Device Identifier Shelf Expiration Date Model / Serial / Lot Synthes 241.901 Lcp Combi Philos 04z14o4.5mm 3 Hole Shaft Lock Compression - S0 - [id number] Implanted:Qty: 1 on 03/03/2020 at [facility] Plate Left: Humerus Synthes I 241.901 / 0 / 0 Synthes 206.035 4mm 6mm 35mm Small Hexagonal Socket Cancellous Full Thread Screw - S0 - [id number] Implanted:Qty: 1 on 03/03/2020 by Felton Fontanez MD at [facility] Screw Left: Humerus Synthes I 206.035 / 0 / 0 Synthes 212.114 3.5mm 2.9mm 35mm Self Tap Lock Stardrive Conical Head T15 Full - S0 - [id number] Implanted:Qty: 1 on 03/03/2020 by Felton Fontanez MD at [facility] Screw Left: Humerus Synthes I 212.114 / 0 / 0 Synthes 204.826 3.5mm 6mm 26mm 2.5mm Self Tap Small Hexagonal Socket Low Profile - S0 - [id number] Implanted:Qty: 1 on 03/03/2020 by Felton Fontanez MD at [facility] Screw Left: Humerus Synthes I 204.826 / 0 / 0 Synthes 212.119 3.5mm 2.9mm 45mm Self Tap Lock Stardrive Conical Head T15 Full - S0 - [id number] Implanted:Qty: 1 on 03/03/2020 by Felton Fontanez MD at [facility] Screw Left: Humerus Synthes I 212.119 / 0 / 0 Synthes 212.134 3.5mm 2.9mm 44mm Self Tap Lock Stardrive Conical Head T15 Full - S0 - [id number] Implanted:Qty: 3 on 03/03/2020 by Felton Fontanez MD at [facility] Screw Left: Humerus Synthes I 212.134 / 0 / 0 Synthes 212.118 3.5mm 2.9mm 42mm Self Tap Lock Stardrive Conical Head Full Thread - S0 - [id number] Implanted:Qty: 1 on 03/03/2020 by Felton Fontanez MD at [facility] Screw Left: Humerus Synthes I 212.118 / 0 / 0 Synthes 204.828 3.5mm 6mm 28mm 2.5mm Self Tap Small Hexagonal Socket Low Profile - S0 - [id number] Implanted:Qty: 1 on 03/03/2020 by Felton Fontanez MD at [facility] Screw Left: Humerus Synthes I 204.828 / 0 / 0 Explanted Type Area Transition Mgr Device Identifier Shelf Expiration Date Model / Serial / Lot [employer] 1624-109ns Corbinmann 3/32in 9in 2 Trocar Pin Fixation Nonsterile - S0 - [id number] Explanted:Qty: 3 on 03/03/2020 at [facility] Other - see comments Left: Humerus [employer] 1624-109N S / 0 / Synthes 292.16 Darby 1.6mm 150mm Trocar Tip Wire Fixation Stainless Steel - S0 - [id number] Explanted:Qty: 3 on 03/03/2020 by Felton Fontanez MD at [facility] Wire Left: Humerus Synthes I 292.16 / 0 / 0 Description:Provisional Fixa tion Procedures Procedure Name Priority Date/Time Associated Diagnosis Comments ELECTROCARDIOGRAM REPORT Routine 024 3:23 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 Aortic aneurysm without rupture, unspecified portion of aorta (HCC) from Last 3 Months Results * Electrocardiogram Report (09/25/2024 3:23 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) us Miles Ferguson MD ECG ORDERABLES Edited R esult - Final from Last 3 Months Insurance [address] [place] [address] [facility] [place] [address] [facility] A[employer] MEDICARE GOLD Care Teams Plant Worker Relationship Specialty Start Date End Date Sophy Vera MD [address] [place] [address] [address] PCP - General Family Medicine 09/25/24
--- OUTSIDE RECORDS SUMMARY | 2024-12-22 14:42 | XMS_ITS | Clinical Summary ---
Author Organization [facility] Address [address] [place] [address] Phone Care Team Providers Care Pulverizer Name Role Phone Luis Weiss MD Primary Care Provider [phone] Allergies No known active allergies Medications Risedronate Sodium (ACTONEL PO) Take by mouth. Active atorvastatin (LIPITOR) 40 MG Tablet Take 40 mg by mouth daily. Active omeprazole (PRILOSEC) 40 MG CAPSULE DELAYED RELEASE Take 40 mg by mouth daily. Active atenolol (TENORMIN) 25 MG Tablet Take 25 mg by mouth daily. Active hydroCHLOROthiaz pablo 25 MG Tablet Take 25 mg by mouth daily. Active lisinopril (PRINIVIL, ZESTRIL) 20 MG Tablet Take 20 mg by mouth daily. Active ezetimibe (ZETIA) 10 MG Tablet Take 10 mg by mouth daily. Active DULoxetine (CYMBALTA) [address] Particles Take 60 mg by mouth daily. Active Cyanocobalamin (VITAMIN B-12 PO) Take by mouth. Active Melatonin-Pyrido xine (MELATONEX) 3-10 MG Tablet Controlled Release Take by mouth. Active aspirin EC 81 MG Tablet Delayed Response Take 81 mg by mouth daily. Active Cholecalciferol (VITAMIN D PO) Take by mouth. 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 Gender Identity Not on file Sexual Orientation Not on file Occupation Industry Job Start Date Job End Date [employer] Not on file Not on file Not on file Last Filed Vital Signs Vital Sign Reading Time Taken Comments Blood Pressure 112/76 11/03/2019 1:22 PM MOTOR 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 SUPERVISOR Pulse 67 11/03/2019 1:22 PM MOTOR 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 SUPERVISOR Temperature 36.2 C (97.1 F) 11/03/2019 1:22 PM MOTOR 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 SUPERVISOR Respiratory Rate 12 11/03/2019 1:22 PM MOTOR 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 SUPERVISOR Oxygen Saturation 96% 11/03/2019 1:22 PM MOTOR 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 SUPERVISOR Inhaled Oxygen Concentration - - Weight 69.9 kg (154 lb) 11/03/2019 1:22 PM MOTOR 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 SUPERVISOR Height 162.6 cm (5' 4 ) 11/03/2019 1:22 PM MOTOR 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 SUPERVISOR Body Mass Index 26.43 11/03/2019 1:22 PM MOTOR 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 SUPERVISOR Plan of Treatment Health Maintenance Due Date Last Done Comments DEXA Bone Density 1955 Hepatitis C Virus (HCV) Screening 1955 TdaP Immunization 1955 Cologuard 2007 Immunochemical Fecal Occult Blood 2007 Mammogram 2007 Pneumococcal Immunization (5 0+ years) (1 of 1 - PCV) 2007 Zoster Immunization (1 of 2) 2007 Influenza Immunization (#1) 2024 SARS-COV-2 Immunization ( season) 2024 01/09/2021 Colonoscopy 07/09/2024 07/09/2019, 11/13/2013 Colorectal Cancer Screening 07/09/2024 Respiratory Syncytial Virus (RSV) Immunization (Adult) (1 - 1-dose 75+ series) 2032 07/09/2019, 11/13/2013 Hepatitis B Immunization Aged Out No longer eligible based on patient's age to complete this topic Meningococcal Immunization (ACWY) Aged Out No longer eligible b ased on patient's age to complete this topic Rotavirus Immunization Aged Out No lo nger eligible based on patient's age to complete this topic Procedures Procedure Name Priority Date/Time Associated Diagnosis Comments HM COLONOSCOPY Routine 07/09/2019 from Last 3 Months or Most Recently Relevant to Health Maintenance Results * HM COLONOSCOPY (07/09/2019) us Not On File Provider PROCEDURE/MINOR SURGICAL OR DERABLES Final Result from Last 3 Months or Most Recently Relevant to Health Maintenance Care Teams Pulverizer Relationship Specialty Start Date End Date Luis Weiss MD [address] [place] [address] PCP - General Family Medicine 07/29/19
[2024-12-22 16:35] LABS: Basophils Absolute Auto 0.1 K/mm3 (0.0-0.1); Basophils Percent Auto 0.9 % (0.2-1.2); Eosinophils Absolute Auto 0.4 K/mm3 (0-0.3); Eosinophils Percent Auto 5.2 % (0-4.4); Hematocrit 35.5 % (37.0-47.0); Hemoglobin 11.4 g/dL (12.0-15.0); Immature Granulocyte Absolute 0.02 K/mm3 (0.00-0.031); Immature Granulocyte Percent A 0.3 % (0-0.5); Lymphocytes Absolute Auto 2.22 K/mm3 (0.9-3.2); Lymphocytes Percent Auto 28.9 % (18.3-44.2); Mean Corpuscular HGB Conc 32.1 g/dl (32-36); Mean Corpuscular Hemoglobin 29.4 pg (26-34); Mean Corpuscular Volume 91.5 fl (80-100); Monocytes Absolute Auto 0.6 K/mm3 (0.1-0.6); Monocytes Percent Auto 8.1 % (2.6-8.5); Neutrophils Absolute Auto 4.4 K/mm3 (1.3-6.7); Neutrophils Percent Auto 56.6 % (45.5-73.1); Platelet Count Result 258 k/mm3 (150-375); Red Blood Count 3.88 M/mm3 (4.2-5.4); Red Cell Distribution Width 12.8 % (11.5-14.5); White Blood Count 7.7 K/mm3 (4.5-10.0)
[2024-12-22 16:41] LABS: Anion Gap 8 mmol/L (4-12); Blood Urea Nitrogen 17 mg/dL (7-17); Calcium 9.5 mg/dL (8.4-10.2); Carbon Dioxide 29 mmol/L (22-30); Chloride 104 mmol/L (98-107); Cholesterol 128 mg/dL (0-200); Estimated Glomerular Filt Rate > 60; Glucose 91 mg/dL (65-110); HDL Direct 47 mg/dL; Potassium 4.5 mmol/L (3.4-5.0); Sodium 141 mmol/L (137-145); Triglycerides 185 mg/dL (<150)
[2024-12-22 16:51] LABS: LDL Cholesterol Direct 55 mg/dL
== END 2024-12-22 14:38 | disposition home or self-care (01) ==
LOC: ANHGOSHLAB 14:38
PROVIDERS: PCP Family Medicine; Visit Provider Student in an Organized Health Care Education/Training Program
DX: E78.2 Mixed hyperlipidemia (principal); I10 Essential (primary) hypertension; D50.9 Iron deficiency anemia, unspecified
CPT/HCPCS: 36415; 80048; 80061; 82728; 85025

== ENCOUNTER 2025-01-08 12:45 | Outpatient (CLI) | payer MEDICARE, SELFPAY ==
--- NOTE | ~2025-01-08 | US_ITS ---
Right flank ULTRASOUND (Doppler ultrasound interrogation techniques used as needed for this exam.) Ordering provider: Derick Daniels APRN History: . R22.2 - Localized swelling, mass and lump, trunk . Comparison: None. FINDINGS/impression: Isoechoic tissue with no definite mass seen. Reviewed, dictated and finalized at location A. MS ASSOCIATE
== END 2025-01-08 12:46 | disposition home or self-care (01) ==
LOC: MICIMG 12:46
PROVIDERS: PCP Family Medicine; Visit Provider Student in an Organized Health Care Education/Training Program
DX: R22.2 Localized swelling, mass and lump, trunk (principal)
CPT/HCPCS: 76705

== ENCOUNTER 2025-06-04 10:12 | Outpatient (CLI) | payer MEDICARE, SELFPAY ==
--- NOTE | ~2025-06-04 | CT_ITS ---
Clinical Indication: Aortic aneurysm CT Scan of the Chest with Contrast: Technique: Contiguous sections were acquired throughout the chest after intravenous administration of 100 cc of Omnipaque 350. Dose reduction technique was used on this scan by utilizing automated expos ure control and iterative reconstruction technique. The dose-length product (DLP) was 202.92 mGy-cm. Findings: There is no evidence of any significant mediastinal, hilar or axillary lymphadenopathy. There is no f illing defect in the pulmonary arterial tree to suggest pulmonary embolus. Ascending aorta measures 4 .2 cm in diameter. There is no evidence of pleural or pericardial effusion. The lungs are clear. No pulmonary nodules or infiltrates are noted. Images through the upper abdomen reveal no abnormalities. Impression: Ascending aorta measures 4.2 cm in diameter. Clear lungs. No pulmonary embolus. Reviewed, dictated and finalized at [facility]. Impression: Ascending aorta measures 4.2 cm in diameter. Clear lungs. No pulmonary embolus.
--- OUTSIDE RECORDS SUMMARY | 2025-06-04 10:18 | XMS_ITS | Continuity of Care Document ---
Author Organization [facility] Address [address] [place] [address] Phone Care Team Providers Care Silver Steward Name Role Phone Emmie GONZALES MD, Lizz Unavailable Unavai lable Allergies, Adverse Reactions, Alerts Substance Reaction Status Criticality adhesive Active No Information SULFUR Active No Information Medications Medication Instructions Dosage Effective Dates (start - stop) Status Comments levothyroxine 125 mcg tablet Take 1 tablet 4 days a week - Active levothyroxine 137 mcg tablet Take 1 tablet 3 days a week - Active magnesium 400 mg (as magnesium oxide) tablet take 2 tablet by by mouth route every day 2 tablet - Active metformin 500 mg tablet take 2 tablet by oral route 2 times every day with morning and evening meals 1000 MG - Active oxybutynin chloride 5 mg tablet take 1 tablet by oral route 3 times every day 5 MG - Active iron 325 mg (65 mg iron) tablet take 1 tablet by oral route every day - Active atenolol 50 mg tablet take 1 tablet by oral route every day 50 MG - Active atorvastatin 10 mg tablet take 1 tablet by oral route every day 10 MG - Active Eliquis 5 mg tablet take 1 tablet by oral route 2 times every day 5 MG - Active flecainide 100 mg tablet take 1 tablet b y oral route every 12 hours 100 MG - Active glimepiride 2 mg tablet take 1 tablet by oral route every day 2 MG - Active hydrochlorothiazide 12.5 mg tablet take 1 tablet by oral route every day 12.5 MG - Active OSTEO BI-FLEX (unknown strength) Take 1 tablet two times daily Not Available - Active Vitamin B-12 1,000 mcg tablet Take 1 tablet once daily - Active Vitamin D3 125 mcg (5,000 unit) tablet Take 1 tablet once daily - Active Procedures Procedure Date Cardioversion EKG With Interp And Report No Charge EM Office Visit Dr Supervised EKG New Pt Office Visit Level 4, Sleep Clini c ACP Disc And Doc, No Surrogate Documente d EKG With Interp And Report Office Visit Level 4 ACP Disc And Doc, No Surrogate Documente d CARDIOVERSION Cardioversion EKG With Interp And Report Office Visit Level 4 ACP Disc And Doc, No Surrogate Documente d Sleep Study W/Titration Of CPAP 025 Rubidium Rb 82 Up To 60 Mc PET, Myocardial Imaging W/CTA IO-Stress Supervision, Office Stress Tracing Only Regadenoson Per 0.1 MG IO-Stress Intepretation, Office 025 CFR Absolute Quantif Myocard BF, PET, Re st/Stress Sleep Study EKG With Interp And Report New Pt Office Visit Level 4 ACP Disc And Doc, No Surrogate Documente d Echo, Complete, Interp IO-Stress Intepretation, [facility] IO-Stress Supervision, [facility] Mar-14-2 007 Results Test Name Date and Time Measure Units Reference Range Abnormal Flag Status Comments Panel Description: CBC W DIFF Final WBC 11:33:00 7.76 10*3/uL 3.60-11.00 Final Performed by:[facility] ([id number])[address] [place] [address] RBC 11:33:00 4.78 10*6/uL 3.92-5.13 Final Performed by:[facility] ([id number])[address] [place] [address] HGB 11:33:00 14.2 g/dL 11.6-15.0 Final Performed by:[facility] ([id number])[address] [place] [address], [place] HCT 11:33:00 42.3 % 35.5-44.9 Final Performed by:[facility] ([id number])[address] [place] [address] MCV 11:33:00 88.5 fL 78.2-97.9 Final Performed by:[facility] ([id number])[address] [place] [address], [place] MCH 11:33:00 29.7 pg 26-34 Final Performed by:[facility] ([id number])[address] [place] [address] MCHC 11:33:00 33.6 g/dL 31-37 Final Performed by:[facility] ([id number])[address] [place] [address] PLATELET 11:33:00 288 10*3/uL 130-450 Final Performed by:[facility] ([id number])[address] [place] [address] RDW 11:33:00 13.1 % 12.2-16.1 Final Performed by:[facility] ([id number])[address] [place] [address], [place] [address] NRBC ABSOLUTE 11:33:00 0.00 10*3/uL 0 Final Performed by:[facility] ([id number])[address] [place] [address], [place] [address] MPV 11:33:00 9.4 fL 9.4-12.3 Final Performed by:[facility] ([id number])[address] [place] [address], [place] [address] DIFFERENTIAL TYPE 11:33:00 AUTOMATED DIFFERENTIAL Final Performed by:[facility] ([id number])[address] [place] [address], [place] [address] NEUTROPHILS 11:33:00 57.6 % 43.0-65.0 Final Performed by:[facility] ([id number])[address] [place] [address], [place] [address] NEUTROPHIL ABS 11:33:00 4.47 10*3/uL 1.8-7.7 Final Performed by:[facility] ([id number])[address] [place] [address], [place] [address] LYMPHOCYTES 11:33:00 31.4 % 20.5-45.5 Final Performed by:[facility] ([id number])[address] [place] [address], [place] [address] LYMPHOCYTE ABS 11:33:00 2.44 10*3/uL 1.0-4.8 Final Performed by:[facility] ([id number])[address] [place] [address], [place] [address] MONOCYTES 11:33:00 7.5 % 0.0-12.0 Final Performed by:[facility] ([id number])[address] [place] [address], [place] [address] MONOCYTE ABS 11:33:00 0.58 10*3/uL 0.26-0.81 Final Performed by:[facility] ([id number])[address] [place] [address], [place] [address] EOSINOPHILS 11:33:00 2.3 % 0.0-5.0 Final Performed by:[facility] ([id number])[address] [place] [address], [place] [address] EOSINOPHIL ABS 11:33:00 0.18 10*3/uL 0.03-0.48 Final Performed by:[facility] ([id number])[address] [place] [address] BASOPHILS 11:33:00 0.8 % 0.0-1.0 Final Performed by:[facility] ([id number])[address] [place] [address] BASOPHIL ABS 11:33:00 0.06 10*3/uL 0.01-0.08 Final Performed by:[facility] ([id number])[address] [place] [address] IMM GRANULOCYTES% 11:33:00 0.4 % 0.0-0.7 Final Performed by:[facility] ([id number])[address] [place] [address] IMM GRANULOCYTES ABS 11:33:00 0.03 10*3/uL 0.0-0.1 Final Performed by:[facility] ([id number])[address] [place] [address] Panel Description: PROTIME Final PROTIME 11:33:00 15.1 s 11.9-14.0 H Final Performed by:[facility] ([id number])[address] [place] [address] INR 11:33:00 1.3 0.9-1.1 H Final (NOTE)Standar d intensity warfarin therapeutic range: 2-3High intensity warfarin therapeutic range: 2.5-3.5Perfor med by:[facility] ([id number])[address] [place] [address] Panel Description: BASIC METABOLIC PROF Final SODIUM 11:33:00 135 mmol/L 136-145 L Final Performed by:[facility] ([id number])[address] [place] [address] POTASSIUM 11:33:00 4.0 mmol/L 3.5-5.1 Final Performed by:[facility] ([id number])[address] [place] [address] CHLORIDE 11:33:00 97 mmol/L 98-107 L Final Performed by:[facility] ([id number])[address] [place] [address] CO2 11:33:00 22 mmol/L 22-29 Final Performed by:[facility] ([id number])[address] [place] [address] GLUCOSE 11:33:00 110 mg/dL 70-140 Final Performed by:[facility] ([id number])[address] [place] [address] BUN 11:33:00 18 mg/dL 8-23 Final Performed by:[facility] ([id number])[address] [place] [address] CREATININE 11:33:00 0.76 mg/dL 0.51-0.95 Final Performed by:[facility] ([id number])[address] [place] [address] CALCIUM 11:33:00 9.7 mg/dL 8.8-10.2 Final Performed by:[facility] ([id number])[address] [place] [address] ANION GAP 11:33:00 16 mmol/L 7-15 H Final Performed by:[facility] ([id number])[address] [place] [address] BUN/CREATININE RATIO 11:33:00 23.7 Final Performed by:[facility] ([id number])[address] [place] [address] OSMOLALITY CALC 11:33:00 283 mosm/kg 275-295 Final Performed by:[facility] ([id number])[address] [place] [address] CREAT BASED eGFR 11:33:00 86 mL/min/ [1.73_m 2] >60 Final GFR 60-90 Mild decreased GFR.Performed by:[facility] ([id number])[address] [place] [address] Panel Description: MAGNESIUM Final MAGNESIUM 11:33:00 1.9 mg/dL 1.6-2.4 Final Performed by:[facility] ([id number])[address] [place] [address] Panel Description: PRO-BNP Final PRO-BNP 11:33:00 1230 pg/mL <300 H Final (NOTE)NT-proB [employer] values below 300 pg/mL have a 98% negative predictive value for excluding acute CHF. For adults 50 to 75 years of age with intact renal function, NT-proBNP values greater than 900 pg/mL have apositive predictive value of 83% for the diagnosis of CHF. Forpatients with an eGFR below 60, a cutoff of 1,200 pg/mL yields adiagnostic sensitivity and specificity of 89% and 72% for acute CHF.Performed by:[facility] ([id number])[address] [place] [address] Panel Description: PTT Final PTT 11:33:00 28.4 s 22.0-34.7 Final Performed by:[facility] ([id number])[address] [place] [address] Advance Directives Directive Yes / No Effective Date File Name No Information Encounters Encounter Description Practice Location Reason(s) For Visit Diagnoses Date Provider Providers Copied on Encounter [facility], [address], [place], [address], [place] tel:[phone] No Information 5 Emmie Zamudio. [facility], [address], [place], [place], [id number], [place]. tel:[phone] [facility], [address], [place], [address], [place] tel:[phone] [place] CVM No Information 5 Emmie Zamudio. [facility], [address], [place], [place], [id number], [place]. tel:[phone] Referring Provider: Lizz Hernandez, [facility] [address], [place], [address]. tel:[phone] No Charge EM Office Visit Dr Supervised EKG [facility], [address], [place], [address], [place] tel:[phone] Demetra CVM Other persistent atrial fibrillation 0 5 Emmie Zamudio. [facility], [address], [place], [place], [address], [place]. tel:[phone] Referring Provider: Lizz Hernandez, [facility] [address], [place], [address]. tel:[phone] New Pt Office Visit Level 4, Sleep Clinic [facility], [address], [place], [address], [place] tel:[phone] [place] CVM RICK treated with BiPAP 5 Krzysztof Contreras. [facility] , [address], [place], [place], [address], [place]. tel:[phone] Referring Provider: Ben Blankenship MD, [facility] [address], [place], [address]. tel:[phone] Office Visit Level 4 [facility], [address], [place], [address], [place] tel:[phone] [place] CVM AFib (chief complaint) Persistent atrial fibrillationH istory of breast cancerMixed hyperlipidemi aMorbid obesityEssent ial hypertensionT ype 2 diabetes, HbA1c goal < 7%Abnormal stress testOSA (obstructive sleep apnea) 5 Emmie Zamudio. [facility], [address], [place], [place], [address], [place]. tel:[phone] Referring Provider: Lizz Hernandez, [facility] [address], [place], [address]. tel:[phone] [facility], [address], [place], [address], [place] tel:[phone] [place] CVM No Information 5 Emmie Zamudio. [facility], [address], [place], [place], [id number], [place]. tel:[phone] Referring Provider: Lizz Hernandez, [facility] [address], [place], [address]. tel:[phone] Office Visit Level 4 [facility], [address], [place], [address], [place] tel:[phone] Demetra CVM Follow Up Visit (chief complaint) AFib (chief complaint) Persistent atrial fibrillationM orbid obesityEssent ial hypertensionT ype 2 diabetes, HbA1c goal < 7%History of breast cancerMixed hyperlipidemi aOSA (obstructive sleep apnea)Abnorma l stress test 5 Emmie Zamudio. [facility], [address], [place], [place], [id number], [place]. tel:[phone] Referring Provider: Lizz Hernandez, [facility] [address], [place], [address]. tel:[phone] [facility], [address], [place], [address], [place] tel:[phone] Sleep Lab CVM Obstructive sleep apnea (adult) (pediatric) 5 Krzysztof Contreras. [facility] , [address], [place], [place], [address], [place]. tel:[phone] Referring Provider: Ben Blankenship MD, [facility] [address], [place], [address]. tel:[phone] [facility], [address], [place], [address], [place] tel:[phone] [place] CVM Obstructive sleep apnea (adult) (pediatric) 3 5 Krzysztof Contreras. [facility] , [address], [place], [place], [address], [place]. tel:[phone] [facility], [address], [place], [address], [place] tel:[phone] DX Demetra CVM Abnormal result of cardiovascula r function study, unspecifiedOt her persistent atrial fibrillation 0 5 [facility]. [facility]. Referring Provider: Lizz Hernandez, [facility] [address], [place], [address]. tel:[phone] [facility], [address], [place], [address], [place] tel:[phone] Sleep Lab CVM Obstructive sleep apnea (adult) (pediatric) 5 Krzysztof Contreras. [facility] , [address], [place], [place], [address], [place]. tel:[phone] Referring Provider: Lizz Hernandez, [facility] [address], [place], [address]. tel:[phone] New Pt Office Visit Level 4 [facility], [address], [place], [address], [place] tel:[phone] Demetra CVM AFib (chief complaint) Persistent atrial fibrillationM orbid obesityEssent ial hypertensionT ype 2 diabetes, HbA1c goal < 7%History of breast cancerMixed hyperlipidemi aSnoring 5 Emmie Zamudio. [facility], [address], [place], [place], [id number], [place]. tel:[phone] Referring Provider: Ana Orozco, [facility] [address] [place], [address]. tel:[phone] [facility], [address], [place], [address], [place] tel:[phone] [place] CVM No Information 201 3 Alfonzo Saenz. [facility] , [address], [place], [place], [address], [place]. tel:[phone] Referring Provider: Lexie Mccray, [address] [place] [address] [address], [place], [address]. tel:[phone] [facility], [address] [facility] [address], [place], [address], [place] tel:[phone] [place] CVM No Information 7 Kira Rolon. [facility] , [address], [place], [place], [address], [place]. tel:[phone] Referring Provider: Lexie Mccray, [address] [place] [address] [address], [place], [address]. tel:[phone] Family History Family Member Type Diagnosis Age At Onset Sister Problem Heart Murmur Payers Payer name Insurance type Covered constitution party ID Authoriza tion(s) Medicare [place] MB [id number] [employer] Medicare Supplement CI [id number] Social History Type Description Quantity Date Captured Comments Alcohol Use Details Unknown Caffeine Use Details Unknown Tobacco Use Status No Information Smoking Status No Information Sex Female Chief Complaint And Reason For Visit No Information Reason For Referral Reason For Referral No Information Plan Of Treatment Date Type Action Status Appointment Charis Nair BOOKED Future Order: Radiology Order Nu clear PET/CT (PT), Appointment on: , Collected on: Ordered History Of Present Illness Encounter Date Complaint History Of Prese nt Illness AFib AFib Follow Up Visit AFib Functional Status Date Functional Assessmen t No Information Instructions Date Instruction Additional Infor mation Coumadin And Vitamin K Coumadin Instructions PCP Wellness Visit Assessments Type Assessment Date No Information Patient Care Teams Name Effective Dates (start - stop) Status Members No Information
--- OUTSIDE RECORDS SUMMARY | 2025-06-04 10:18 | XMS_ITS | Clinical Summary ---
Author Organization [facility] Address [address] [place] [address] Care Team Providers Care Yardage Control Operator Forming Name Role Phone Sophy Vera MD Primary Care Provider + Allergies No known active allergies Medications hydroCHLOROthia zide (HYDRODIURIL) 25 mg tablet [...] 2 g into the vagina daily Active busPIRone (BUSPAR) 5 mg tabletIndicatio ns:Generalized Anxiety Disorder Take 1 tablet (5 mg total) by mouth 3 (three) times a day Active spironolactone (ALDACTONE) 25 mg tablet Take 1 tablet (25 mg total) by mouth daily Active Active Problems Problem Noted Date [...] (03/02/2020): Added automatically from request for surgery [id number] Closed fracture of left proximal humerus 020 Overview (03/02/2020): Added automatically from request for surgery [id number] Iron deficiency anemia 06/19/2019 Osteoarthritis of hip 09/17/2017 Arthralgia of hip 03/04/2017 Normocytic normochromic anemia 08/04/2013 Acid indigestion Anemia Encounters Date Type Department Care Team Description 04/02/2025 11:30 AM CDT Office Visit [facility] Cardiology at [address] [place] [address] Miles Ferguson MD Aortic aneurysm without rupture, unspecified portion of aorta (Primary Dx) 04/02/2025 Telephone [facility] Cardiology at [address] [place] [id number] Miles Ferguson MD from Last 3 Months Surgical History Surgery Date Site/Laterality Comments TRIGGER FINGER RELEASE 11/04/2015 - 11/03/2016 Right TOTAL HIP ARTHROPLASTY 11/04/2017 - 11/03/2018 Left COLONOSCOPY ESOPHAGOGASTRODUODENOSCOPY ORIF HUMERUS FRACTURE 02/03/2020 - 03/03/2020 Left Medical History Medical History Date Comments Hypertension Hyperlipidemia Acid indigestion Anemia Severe Depression Osteopenia Migraines Arthritis Family History Medical History Relation Name Comments Valvular heart disease Brother Valvu lar heart disease; Heart attack Maternal Grandfather [...] on file 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 Gender Identity Not on file Sexual Orientation Not on file 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 Not on file Not on file Obstetrics History Last Filed Vital Signs Vital Sign Reading Time Taken Comments Blood Pressure 108/68 04/02/2025 11:44 AM CDT Pulse 72 04/02/2025 11:44 AM CDT Temperature 36.2 C (97.2 F) 03/03/2020 3:00 PM CDT Respiratory Rate 12 06/22/2020 12:02 PM CDT Oxygen Saturation 97% 04/02/2025 11:44 AM CDT Inhaled Oxygen Concentration - - Weight 66.7 kg (147 lb) 04/02/2025 11:44 AM CDT Height 162.6 cm (5' 4) 04/02/2025 11:44 AM CDT Body Mass Index 25.23 04/02/2025 11:44 AM CDT Plan of Treatment Health Maintenance Due Date Last Done Comments Breast Cancer Screening-Mammogram 1957 Colon Cancer Screening-Colonoscopy 1957 Hepatitis C Screening 1957 Osteoporosis Screening-Bone Density Scan 1957 DTaP/Tdap/Td Vaccine (1 - Tdap) 1968 Hepatitis B Screening 1975 Pneumococcal vaccine 65+ (1 of 2 - PCV) 1976 Zoster Vaccine (1 of 2) 2007 Fall Risk Assessment 03/03/2021 03/03/2020 Depression Screening 06/22/2021 06/22/2020, 06/22/20 20 Well Visit 65+ 2022 Influenza Vaccine (#1) 2025 10/06/2020 Medical Devices Implanted Type Area Stitch Bonding Machine Operator Device Identifier Shelf Expiration Date Model / Serial / Lot Synthes 241.901 Lcp Combi Philos [id number] 3 Hole Shaft Lock Compression - S0 - [id number] Implanted:Qty: 1 on 03/03/2020 at [facility] Plate Left: Humerus Synthes I 241.901 / 0 / 0 Synthes 206.035 4mm 6mm 35mm Small Hexagonal Socket Cancellous Full Thread Screw - S0 - [id number] Implanted:Qty: 1 on 03/03/2020 by Felton Fontanez MD at [facility] Screw Left: Humerus Synthes I 206.035 / 0 / 0 Synthes 212.114 3.5mm 2.9mm 35mm Self Tap Lock Stardrive Conical Head T15 Full - S0 - [id number] Implanted:Qty: 1 on 03/03/2020 by Felton Fontanez MD at [facility] Screw Left: Humerus Synthes I 212.114 / 0 / 0 Synthes 204.826 3.5mm 6mm 26mm 2.5mm Self Tap Small Hexagonal Socket Low Profile - S0 - [id number] Implanted:Qty: 1 on 03/03/2020 by Felton Fontanez MD at [facility] Screw Left: Humerus Synthes I 204.826 / 0 / 0 Synthes 212.119 3.5mm 2.9mm 45mm Self Tap Lock Stardrive Conical Head T15 Full - S0 - [id number] Implanted:Qty: 1 on 03/03/2020 by Felton Fontanez MD at [facility] Screw Left: Humerus Synthes I 212.119 / 0 / 0 Synthes 212.134 3.5mm 2.9mm 44mm Self Tap Lock Stardrive Conical Head T15 Full - S0 - [id number] Implanted:Qty: 3 on 03/03/2020 by Felton Fontanez MD at [facility] Screw Left: Humerus Synthes I 212.134 / 0 / 0 Synthes 212.118 3.5mm 2.9mm 42mm Self Tap Lock Stardrive Conical Head Full Thread - S0 - [id number] Implanted:Qty: 1 on 03/03/2020 by Felton Fontanez MD at [facility] Screw Left: Humerus Synthes I 212.118 / 0 / 0 Synthes 204.828 3.5mm 6mm 28mm 2.5mm Self Tap Small Hexagonal Socket Low Profile - S0 - [id number] Implanted:Qty: 1 on 03/03/2020 by Felton Fontanez MD at [facility] Screw Left: Humerus Synthes I 204.828 / 0 / 0 Explanted Type Area Stitch Bonding Machine Operator Device Identifier Shelf Expiration Date Model / Serial / Lot [employer] 1624-109ns Steinmann 3/32in 9in 2 Trocar Pin Fixation Nonsterile - S0 - [id number] Explanted:Qty: 3 on 03/03/2020 at [facility] Other - see comments Left: Humerus [employer] 1624-109N S / 0 / Synthes 292.16 Darby 1.6mm 150mm Trocar Tip Wire Fixation Stainless Steel - S0 - [id number] Explanted:Qty: 3 on 03/03/2020 by Felton Fontanez MD at [facility] Wire Left: Humerus Synthes I 292.16 / 0 / 0 Description:Provisional Fixa tion Insurance [facility] [address] [place] [address] [employer] MEDICARE GOLD Care Teams Yardage Control Operator Forming Relationship Specialty Start Date End Date Sophy Vera MD [address] [place] [address] DR JANSEN [address] [place] [address] PCP - General Family Medicine 09/25/24
--- OUTSIDE RECORDS SUMMARY | 2025-06-04 10:19 | XMS_ITS | Referral Summary ---
Author Organization [facility] Address [address] [place] [address] Care Team Providers Care Director Investor Relations Name Role Phone Sophy Vera MD Primary Care Provider + Encounters Date Type Department Care Team Description 04/02/2025 Telephone [facility] Cardiology at [address] [address] Miles Ferguson MD 04/02/2025 11:30 AM CDT Office Visit [facility] Cardiology at [address] [address] Miles Ferguson MD Aortic aneurysm without rupture, unspecified portion of aorta (Primary Dx) from Last 3 Months Allergies No known active allergies Medications hydroCHLOROthia [...] (03/02/2020): Added automatically from request for surgery [id number] Closed fracture of left proximal humerus 020 Overview (03/02/2020): Added automatically from request for surgery [id number] Iron deficiency anemia 06/19/2019 Osteoarthritis of hip [...] on file 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 Gender Identity Not on file Sexual Orientation [...] 04/02/2025 11:44 AM CDT Plan of Treatment Not on file Medical Devices Implanted Type Area Drive In Waiter/Waitress Device Identifier Shelf Expiration Date Model / Serial / Lot Synthes 241.901 Lcp Combi Philos [id number] 3 Hole Shaft Lock Compression - S0 - [id number] Implanted:Qty: 1 on 03/03/2020 at [facility] Plate Left: Humerus Synthes I 241.901 / 0 / 0 Synthes 206.035 4mm 6mm 35mm Small Hexagonal Socket Cancellous Full Thread Screw - S0 - [id number] Implanted:Qty: 1 on 03/03/2020 by Felton Fontanez MD at [facility] Screw Left: Humerus Synthes I 206.035 / 0 / 0 Synthes 212.114 3.5mm 2.9mm 35mm Self Tap Lock Stardrive Conical Head T15 Full - S0 - [id number] Implanted:Qty: 1 on 03/03/2020 by Felton Fontanez MD at [facility] Screw Left: Humerus Synthes I 212.114 / 0 / 0 Synthes 204.826 3.5mm 6mm 26mm 2.5mm Self Tap Small Hexagonal Socket Low Profile - S0 - [id number] Implanted:Qty: 1 on 03/03/2020 by Felton Fontanez MD at [facility] Screw Left: Humerus Synthes I 204.826 / 0 / 0 Synthes 212.119 3.5mm 2.9mm 45mm Self Tap Lock Stardrive Conical Head T15 Full - S0 - [id number] Implanted:Qty: 1 on 03/03/2020 by Felton Fontanez MD at [facility] Screw Left: Humerus Synthes I 212.119 / 0 / 0 Synthes 212.134 3.5mm 2.9mm 44mm Self Tap Lock Stardrive Conical Head T15 Full - S0 - [id number] Implanted:Qty: 3 on 03/03/2020 by Felton Fontanez MD at [facility] Screw Left: Humerus Synthes I 212.134 / 0 / 0 Synthes 212.118 3.5mm 2.9mm 42mm Self Tap Lock Stardrive Conical Head Full Thread - S0 - [id number] Implanted:Qty: 1 on 03/03/2020 by Felton Fontanez MD at [facility] Screw Left: Humerus Synthes I 212.118 / 0 / 0 Synthes 204.828 3.5mm 6mm 28mm 2.5mm Self Tap Small Hexagonal Socket Low Profile - S0 - [id number] Implanted:Qty: 1 on 03/03/2020 by Felton Fontanez MD at [facility] Screw Left: Humerus Synthes I 204.828 / 0 / [address] Area [address] In Waiter/Waitress Device Identifier Shelf Expiration Date Model / Serial / Lot [employer] 1624-109ns Steinmann 3/32in 9in 2 Trocar Pin Fixation Nonsterile - S0 - [id number] Explanted:Qty: 3 on 03/03/2020 at [facility] Other - see comments Left: Humerus [employer] 1624-109N S / 0 / Synthes 292.16 Darby 1.6mm 150mm Trocar Tip Wire Fixation Stainless Steel - S0 - [id number] Explanted:Qty: 3 on 03/03/2020 by Felton Fontanez MD at [facility] Wire Left: Humerus Synthes I 292.16 / 0 / 0 Description:Provisional Fixa tion Insurance [facility] HMO [facility] AETNA MEDICARE [facility] Address: [address] [place] [address] Care Teams Director Investor Relations Relationship Specialty Start Date End Date Sophy Vera MD [facility] [address] [address] PCP - General Family Medicine 09/25/24
--- OUTSIDE RECORDS SUMMARY | 2025-06-04 10:19 | XMS_ITS | Clinical Summary ---
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 Pulse 65 10/02/2023 4:35 PM AGRICULTURAL EQUIPMENT SALES MANAGER Temperature 36.3 C (97.4 F) 10/02/2023 2:08 PM AGRICULTURAL EQUIPMENT SALES MANAGER Respiratory Rate 15 10/02/2023 4:35 PM AGRICULTURAL EQUIPMENT SALES MANAGER Oxygen Saturation 100% 10/02/2023 4:35 PM AGRICULTURAL EQUIPMENT SALES MANAGER Inhaled Oxygen Concentration - - Weight 64.9 kg (143 lb) 10/02/2023 2:08 PM AGRICULTURAL EQUIPMENT SALES MANAGER Height 162.6 cm (5' 4) 10/02/2023 2:08 PM AGRICULTURAL EQUIPMENT SALES MANAGER Body Mass Index 24.55 10/02/2023 2:08 PM AGRICULTURAL EQUIPMENT SALES MANAGER Plan of Treatment Health Maintenance Due Date Last Done Comments Colorectal Cancer Screening Colonoscopy (10 Years) 1957 Hepatitis C 1975 DTaP, Tdap and Td Vaccines ( 1 - Tdap) 1976 Mammogram Screening 1997 Pneumococcal Vaccine: 50+ Years (1 of 1 - PCV) 2007 Zoster Vaccines (1 of 2) 2007 Annual Medicare Wellness Visit 2022 Dexa Scan (General) 2022 COVID-19 Vaccine (3 - 2023-2 5 season) 2024 04/17/2022, 01/09/2021 RSV Immunization or 60+ Years (1 - [...] complete this topic Insurance [employer] Care Teams Record Maker Relationship Specialty Start Date End Date Sophy Vera MD [address] [facility] [address] JANSEN [address] [place] [address] PCP - General FAMILY PRACTICE 10/02/23
--- OUTSIDE RECORDS SUMMARY | 2025-06-04 10:19 | XMS_ITS | Clinical Summary ---
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 Gender Identity Not on file Sexual Orientation Not on file Occupation Industry Job Start Date Job End Date [employer] Not on file Not on file Not on file Last Filed Vital Signs Vital Sign Reading Time Taken Comments Blood Pressure 112/76 11/03/2019 1:22 PM PACKING SUPERVISOR Pulse 67 11/03/2019 1:22 PM PACKING SUPERVISOR Temperature 36.2 C (97.1 F) 11/03/2019 1:22 PM PACKING SUPERVISOR Respiratory Rate 12 11/03/2019 1:22 PM PACKING SUPERVISOR Oxygen Saturation 96% 11/03/2019 1:22 PM PACKING SUPERVISOR Inhaled Oxygen Concentration - - Weight 69.9 kg (154 lb) 11/03/2019 1:22 PM PACKING SUPERVISOR Height 162.6 cm (5' 4) 11/03/2019 1:22 PM PACKING SUPERVISOR Body Mass Index 26.43 11/03/2019 1:22 PM PACKING SUPERVISOR Plan of Treatment Health Maintenance Due Date Last Done Comments Hepatitis C Virus (HCV) Screening 1955 TdaP Immunization 1957 Cologuard 2002 Immunochemical Fecal Occult Blood 2002 Pneumococcal Immunization (5 0+ years) (1 of 1 - PCV) 2007 Zoster Immunization (1 of 2) 2007 SARS-COV-2 Immunization (2 - season) 2024 01/09/2021 Colonoscopy 07/09/2024 07/09/2019, 11/13/2013 Colorectal Cancer Screening 07/09/2024 Influenza Immunization (#1) 2025 Respiratory Syncytial Virus (RSV) Immunization (Adult) (1 - 1-dose 75+ series) 2032 Hepatitis B Immunization Aged Out No longer eligible based on patient's age to complete this topic Human Papillomavirus (HPV) Immunization Aged Out No longer eligible b ased on patient's age to complete this topic Meningococcal Immunization (ACWY) Aged Out No longer eligible b ased on patient's age to complete this topic Rotavirus Immunization Aged Out No lo nger eligible based on patient's age to complete this topic Procedures Procedure Name Priority Date/Time Associated Diagnosis Comments COLONOSCOPY Routine 07/09/2019 from Last 3 Months or Most Recently Relevant to Health Maintenance Results * COLONOSCOPY (07/09/2019) us Not On File Provider PROCEDURE/MINOR SURGICAL OR DERABLES Final Result from Last 3 Months or Most Recently Relevant to Health Maintenance Care Teams Web Applications Administrator Relationship Specialty Start Date End Date Luis Weiss MD [address] [place] [address] PCP - General Family Medicine 07/29/19
--- OUTSIDE RECORDS SUMMARY | 2025-06-04 10:19 | XMS_ITS | Clinical Summary ---
Author Organization [facility] Address [address] [facility] [place] [address] Care Team Providers Care Pigment Weigher Name Role Phone Sophy Vera MD Primary Care Provider [phone] Allergies No known active allergies Medications omeprazole [...] Encounters Date Type Department Care Team Description 05/19/2025 External Device Data ST[facility] ABSTRACTION Provider, Abstract 05/19/2025 External Device Data STL ABSTRACTION Provider, Abstract 05/18/2025 External Device Data STL ABSTRACTION Provider, Abstract 03/24/2025 External Device Data STL ABSTRACTION Provider, Abstract 03/23/2025 External Device Data STL ABSTRACTION Provider, Abstract [...] 11:02 AM CDT Height 162.6 cm (5' 4) 01/17/2023 2:11 PM CDT Body Mass Index 24.72 01/17/2023 2:11 PM CDT Plan of Treatment Upcoming Encounters Date Type Department Care Team (Late st Contact Info) Description 08/11/2025 3:30 PM CDT Office Visit [facility] Oncology and Hematology - [place] [address] [facility] [address] [place] [address] Kirt Rosario MD [address] [facility] [address] [place] [address] Health Maintenance Due Date Last Done Comments DTAP/TDAP/TD VACCINES (1 - Tdap) 1976 BREAST CANCER SCREENING 1997 FIT-DNA Q 3 years 2002 FIT/FOBT Q 1 year 2002 Flex Sig/CT Colonography Q 5 years 2002 PNEUMOCOCCAL VACCINE 50+ YEARS (1 of 1 - PCV) 12/17/19 08 ZOSTER VACCINE (1 of 2) 2007 OSTEOPOROSIS SCREENING 2022 INFLUENZA VACCINE (#1) 2025 COLORECTAL SCREENING 07/09/2029 07/09/2019 Colorectal Cancer Screening 07/09/2029 RSV VACCINE (60+ or ) (1 - 1-dose 75+ series) 2032 [facility] Address: [facility] [id number] [place] [phone] Care Teams Pigment Weigher Relationship Specialty Start Date End Date Sophy Vera MD [address] [facility] [address] [place] [address] PCP - General Family Practice 04/25/23
[2025-06-04 10:41] LABS: Estimated Glomerular Filt Rate > 60
== END 2025-06-04 10:13 | disposition home or self-care (01) ==
PROVIDERS: PCP Family Medicine; Visit Provider Specialist
DX: I71.21 Aneurysm of the ascending aorta, without rupture (principal)
CPT/HCPCS: 71275; Q9967

== ENCOUNTER 2025-06-18 09:52 | Outpatient (CLI) | payer MEDICARE, SELFPAY ==
--- NOTE | ~2025-06-18 | XR_ITS ---
XR hip RT 2V w AP pelvis 06/18/2025 10:31 Indication: Right hip pain Procedure: AP pelvis and 2 views right hip Comparison: 03/09/2019 Findings: There is mild osteoarthritis of the right hip. Pelvic rings intact. There is a left total h ip arthroplasty. Sacral foramen are symmetric. No acute fracture, subluxation or dislocation. Impression: 1: Mild osteoarthritis of the right hip. Reviewed, dictated and finalized at location A. Impression: 1: Mild osteoarthritis of the right hip.
--- NOTE | ~2025-06-18 | US_ITS ---
EXAM: ABDOMEN ULTRASOUND HISTORY: R10.11 - Right upper quadrant pain COMPARISON: Reference is made to a CTA of the chest includes the upper cuts of the abdomen (and the l iver) dated 06/04/2025. FINDINGS: LIVER: Subcentimeter anechoic foci consistent with cysts within the posterior margin of the right lob e of the liver. The remainder of the liver is otherwise unremarkable in echogenicity and size. The portal vein is patent, demonstrating hepatopedal flow. The contour of the liver surface is smooth. GALLBLADDER: No stones are identified within the gallbladder, which is otherwise unremarkable. No gallbladder wall thickening or pericholecystic fluid. BILE DUCTS: Common bile duct measures 2.6mm. PANCREAS: Limited evaluation of the pancreas secondary to overlying bowel gas IMPRESSION: Limited evaluation of the pancreas secondary to overlying bowel gas Subcentimeter liver cyst. Gallbladder is unremarkable. Reviewed, dictated and finalized at location A.
== END 2025-06-18 09:53 | disposition home or self-care (01) ==
LOC: GOSHIMG 09:52
PROVIDERS: PCP Family Medicine; Visit Provider Family Medicine
DX: R10.11 Right upper quadrant pain (principal); M16.11 Unilateral primary osteoarthritis, right hip; K76.89 Other specified diseases of liver
CPT/HCPCS: 73502; 76705

== ENCOUNTER 2025-08-09 10:39 | Outpatient (CLI) | payer MEDICARE, SELFPAY ==
--- OUTSIDE RECORDS SUMMARY | 2025-07-20 04:00 | XMS_ITS | Continuity of Care Document ---
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 Name Role Phone Brendan GONZALES MD, Noemi Unavailable Unavailabl e Allergies, Adverse Reactions, Alerts Substance Reaction Status Criticality adhesive Active No Information SULFUR Active No Information Medications Medication Instructions Dosage Effective Dates (start - stop) Status Comments Eliquis 5 mg tablet take 1 tablet by oral route 2 times every day 5 MG - Active Samples given on 07/09/2025- flecainide 100 mg tablet take 1 tablet b y oral route every 12 hours 100 MG - Active hydrochlorothiazide 12.5 mg tablet take 1 tablet by oral route every day 12.5 MG - Active Vitamin B-12 1,000 mcg tablet Take 1 tablet once daily - Active Vitamin D3 125 mcg (5,000 unit) tablet Take 1 tablet once daily - Active iron 325 mg (65 mg iron) tablet take 1 tablet by oral route every day - Active magnesium 400 mg (as magnesium oxide) tablet take 2 tablet by by mouth route every day 2 tablet - Active glimepiride 2 mg tablet take 1 tablet by oral route every day 2 MG - Active oxybutynin chloride 5 mg tablet take 1 tablet by oral route 3 times every day 5 MG - Active atorvastatin 10 mg tablet take 1 tablet by oral route every day 10 MG - Active levothyroxine 125 mcg tablet Take 1 tablet 4 days a week - Active levothyroxine 137 mcg tablet Take 1 tablet 3 days a week - Active atenolol 50 mg tablet take 1 tablet by oral route every day 50 MG - Active metformin 500 mg tablet take 2 tablet by oral route 2 times every day with morning and evening meals 1000 MG - Active OSTEO BI-FLEX (unknown strength) Take 1 tablet two times daily Not Available - Active Procedures Procedure Date Comp EPS & AFib Ablation Tmt Of AFib After Pulm Vein Isol 2024 EKG With Interp And Report New Pt Office Visit Level 4 ACP Disc And Doc, No Surrogate Documente d EKG With Interp And Report Office Visit Level 3 ACP Disc And Doc, No Surrogate Documente d Cardioversion EKG With Interp And Report No Charge EM Office Visit Supervised EKG New Pt Office Visit Level [...] Regadenoson Per 0.1 MG IO-Stress Intepretation, Office CFR Absolute Quantif Myocard BF, PET, Re st/Stress Sleep Study EKG With Interp And Report New Pt Office Visit Level 4 ACP Disc And Doc, No Surrogate Documente d Echo, Complete, Interp IO-Stress Intepretation, [facility] IO-Stress Supervision, [facility] 007 Results Test Name Date and Time Measure Units Reference Range Abnormal Flag Status Comments Panel Description: ISTAT ACT Final ISTAT ACT 11:40:00 406 s 79-149 H Final Performed by:[facility] ([id number] )[address] [place] [address] Panel Description: TYPE AND SCREEN Final ABO RH(D) 09:00:00 A POSITIVE Final [facility]formed by:[facility] ([id number] )[address] [place] [address] ANTIBODY SCREEN 09:00:00 NEGATIVE Final Performed by:[facility] ([id number] )[address] [place] [address]305 Panel Description: CBC W DIFF Final WBC 09:00:00 7.22 10*3/uL 3.60-11.00 Final Performed by:[facility] ([id number] )[address] [place] [address] 40937 RBC 09:00:00 4.72 10*6/uL 3.92-5.13 Final Performed by:[facility] ([id number] )[address] [place] [address] 94161 HGB 09:00:00 14.0 g/dL 11.6-15.0 Final Performed by:[facility] ([id number] )[address] [place] [address] 76519 HCT 09:00:00 41.9 % 35.5-44.9 Final Performed by:[facility] ([id number] )[address] [place] [address]2507 MCV 09:00:00 88.8 fL 78.2-97.9 Final Performed by:[facility] ([id number] )[address] [place] [address], [place] [address] MCH Sep-16-2 025 09:00:00 29.7 pg 26-34 Final Performed by:[facility] ([id number] )[address] [place] [address], [place] [address] MCHC Sep-16-2 025 09:00:00 33.4 g/dL 31-37 Final Performed by:[facility] ([id number] )[address] [place] [address], [place] [address] PLATELET Sep-16-2 025 09:00:00 299 10*3/uL 130-450 Final Performed by:[facility] ([id number] )[address] [place] [address], [place] [address] RDW Sep-16-2 025 09:00:00 13.5 % 12.2-16.1 Final Performed by:[facility] ([id number] )[address] [place] [address], [place] [address] NRBC ABSOLUTE Jul-16-2 025 09:00:00 0.00 10*3/uL 0 Final Performed by:[facility] ([id number] )[address] [place] [address], [place] [address] MPV Jul-16-2 025 09:00:00 8.9 fL 9.4-12.3 L Final Performed by:[facility] ([id number] )[address] [place] [address], [place] [address] DIFFERENTIAL TYPE Jul-16-2 025 09:00:00 AUTOMATED DIFFERENTIAL Final Performed by:[facility] ([id number] )[address] [place] [address], [place] [address] NEUTROPHILS Sep-16-2 025 09:00:00 66.6 % 43.0-65.0 H Final Performed by:[facility] ([id number] )[address] [place] [address], [place] [address] NEUTROPHIL ABS Sep-16-2 025 09:00:00 4.80 10*3/uL 1.8-7.7 Final Performed by:[facility] ([id number] )[address] [place] [address], [place] [address] LYMPHOCYTES Sep-16-2 025 09:00:00 24.9 % 20.5-45.5 Final Performed by:[facility] ([id number] )[address] [place] [address], [place] [address] LYMPHOCYTE ABS Sep-16-2 025 09:00:00 1.80 10*3/uL 1.0-4.8 Final Performed by:[facility] ([id number] )[address] [place] [address], [place] [address] MONOCYTES Jul-16-2 025 09:00:00 5.8 % 0.0-12.0 Final Performed by:[facility] ([id number] )[address] [place] [address], [place] [address] MONOCYTE ABS Jul-16-2 025 09:00:00 0.42 10*3/uL 0.26-0.81 Final Performed by:[facility] ([id number] )[address] [place] [address], [place] [address] EOSINOPHILS Jul-16- 025 09:00:00 1.9 % 0.0-5.0 Final Performed by:[facility] ([id number] )[address] [place] [address], [place] [address] EOSINOPHIL ABS Jul-16-2 025 09:00:00 0.14 10*3/uL 0.03-0.48 Final Performed by:[facility] ([id number] )[address] [place] [address], [place] [address] BASOPHILS Jul-16-2 025 09:00:00 0.7 % 0.0-1.0 Final Performed by:[facility] ([id number] )[address] [place] [address], [place] [address] BASOPHIL ABS Jul-16-2 025 09:00:00 0.05 10*3/uL 0.01-0.08 Final Performed by:[facility] ([id number] )[address] [place] [address], [place] [address] IMM GRANULOCYTES% Jul-16- 025 09:00:00 0.1 % 0.0-0.7 Final Performed by:[facility] ([id number] )[address] [place] [address], [place] [address] IMM GRANULOCYTES ABS Jul-16-2 025 09:00:00 0.01 10*3/uL 0.0-0.1 Final Performed by:[facility] ([id number] )[address] [place] [address], [place] [address] Panel Description: COMP METABOLIC PANEL Final SODIUM Jul-16-2 025 09:00:00 137 mmol/L 136-145 Final Performed by:[facility] ([id number] )[address] [place] [address], [place] [address] POTASSIUM Sep-16-2 025 09:00:00 3.7 mmol/L 3.5-5.1 Final Performed by:[facility] ([id number] )[address] [place] [address], [place] [address] CHLORIDE Sep-16-2 025 09:00:00 101 mmol/L 98-107 Final Performed by:[facility] ([id number] )[address] [place] [address], [place] [address] CO2 Sep-16-2 025 09:00:00 23 mmol/L 22-29 Final Performed by:[facility] ([id number] )[address] [place] [address], [place] [address] GLUCOSE Sep-16-2 025 09:00:00 144 mg/dL 70-140 H Final Performed by:[facility] ([id number] )[address] [place] [address], [place] [address] BUN Sep-16-2 025 09:00:00 21 mg/dL 8-23 Final Performed by:[facility] ([id number] )[address] [place] [address], [place] [address] CREATININE Sep-16-2 025 09:00:00 0.82 mg/dL 0.51-0.95 Final Performed by:[facility] ([id number] )[address] [place] [address], [place] [address] CALCIUM Sep-16-2 025 09:00:00 9.6 mg/dL 8.8-10.2 Final Performed by:[facility] ([id number] )[address] [place] [address], [place] [address] PROTEIN,TOTAL Sep-16-2 025 09:00:00 8.3 g/dL 6.4-8.3 Final Performed by:[facility] ([id number] )[address] [place] [address], [place] [address] ALBUMIN Sep-16-2 025 09:00:00 4.4 g/dL 3.5-5.2 Final Performed by:[facility] ([id number] )[address] [place] [address], [place] [address] BILIRUBIN TOTAL Sep-16-2 025 09:00:00 1.2 mg/dL 0.0-1.2 Final Performed by:[facility] ([id number] )[address] [place] [address], [place] [address] ALK PHOS Sep-16-2 025 09:00:00 123 U/L 35-104 H Final Performed by:[facility] ([id number] )[address] [place] [address] AST (SGOT) 09:00:00 25 U/L <33 Final Performed by:[facility] ([id number] )[address] [place] [address] 49759 ALT (SGPT) 09:00:00 22 U/L <33 Final Performed by:[facility] ([id number] )[address] [place] [address] ANION GAP 09:00:00 13 mmol/L 7-15 Final Performed by:[facility] ([id number] )[address] [place] [address] BUN/CREATININE RATIO 09:00:00 25.6 Final Performed by:[facility] ([id number] )[address] [place] [address] OSMOLALITY CALC 09:00:00 290 mosm/kg 275-295 Final Performed by:[facility] ([id number] )[address] [place] [address] GLOBULIN 09:00:00 3.9 g/dL Final Performed by:[facility] ([id number] )[address] [place] [address] A/G RATIO 09:00:00 1.1 Final Performed by:[facility] ([id number] )[address] [place] [address] CREAT BASED eGFR 09:00:00 78 mL/min/[ 1.73_m2] >60 Final GFR 60-90 Mild decreased GFR.Perform ed by:[facility] ([id number] )[address] [place] [address] Panel Description: MAGNESIUM Final MAGNESIUM 09:00:00 1.9 mg/dL 1.6-2.4 Final Performed by:[facility] ([id number] )[address] [place] [address] Advance Directives Directive Yes / No Effective Date File Name No Information Encounters Encounter Description Practice Location Reason(s) For Visit Diagnoses Date Provider Providers Copied on Encounter [facility], [address], [place], [address], [place] tel:[phone] No Information Jul- 5 Brendan Franklin. [facility], [address], [place], [place], [address], [place]. tel:[phone] [facility], [address], [place], [address], [place] tel:[phone] Demetra CVM No Information Jul- 5 Brendan rFanklin. [facility], [address], [place], [place], [address], [place]. tel:[phone] Referring Provider: Noemi GONZALES V, [facility] [address], [place], [address]. tel:[phone] [facility], [address], [place], [address], [place] tel:[phone] Waldorf CVM No Information 5 Emmie Zamudio . [facility], [address], [place], [place], [address], [place]. tel:[phone] [facility], [address], [place], [address], [place] tel:[phone] Demetra CVM Persistent atrial fibrillation 5 Brendan Franklin. [facility], [address], [place], [place], [address], [place]. tel:[phone] New Pt Office Visit Level 4 [facility] Medicine [facility], [address], [place], [address], [place] tel:[phone] [place] CVM Cardiovascul ar Review (chief complaint)AF ib (chief complaint) Persistent atrial fibrillation Abnormal stress testMixed hyperlipidem iaOSA (obstructive sleep apnea)Histor y of breast cancerMorbid obesityEssen tial hypertension Type 2 diabetes, HbA1c goal < 7% 5 Brendan Franklin. [facility] , [address], [place], [place], [address], [place]. tel:[phone] Referring Provider: Lizz Hernandez, [facility] [address], [place], [address]. tel:[phone] Office Visit Level 3 [facility], [address], [place], [address], [place] tel:[phone] Demetra CVM AFib (chief complaint) Mixed hyperlipidem iaHistory of breast cancerMorbid obesityEssen tial hypertension Type 2 diabetes, HbA1c goal < 7%Abnormal stress testOSA (obstructive sleep apnea)Persis tent atrial fibrillation 5 Emmie Zamudio . [facility], [address], [place], [place], [address], [place]. tel:[phone] Referring Provider: Lizz Hernandez, [facility] [address], [place], [address]. tel:[phone] [facility], [address], [place], [address], [place] tel:[phone] Demetra CVM No Information 5 Emmie Zamudio . [facility], [address], [place], [place], [address], [place]. tel:[phone] Referring Provider: Lizz Hernandez, [facility] [address], [place], [address]. tel:[phone] No Charge EM Office Visit Dr Supervised EKG [facility], [address], [place], [address], [place] tel:[phone] Wal[place] CVM Other persistent atrial fibrillation 5 Emmie Zamudio . [facility], [address], [place], [place], [address], [place]. tel:[phone] Referring Provider: Lizz Hernandez, [facility] [address], [place], [address]. tel:[phone] New Pt Office Visit Level 4, Sleep Clinic [facility], [address], [place], [address], [place] tel:[phone] Demetra CVM RICK treated with BiPAP 5 Krzysztof Contreras. [facility] , [address], [place], [place], [address], [place]. tel:[phone] Referring Provider: Ben Blankenship MD, [facility] [address], [place], [address]. tel:[phone] Office Visit Level 4 [facility], [address], [place], [address], [place] tel:[phone] Demetra CVM AFib (chief complaint) Persistent atrial fibrillation History of breast cancerMixed hyperlipidem iaMorbid obesityEssen tial hypertension Type 2 diabetes, HbA1c goal < 7%Abnormal stress testOSA (obstructive sleep apnea) 5 Emmie Zamudio . [facility], [address], [place], [place], [address], [place]. tel:[phone] Referring Provider: Lizz Hernandez, [facility] [address], [place], [address]. tel:[phone] [facility] Medicine [facility], [address], [place], [address], [place] tel:[phone] Wal[place] CVM No Information 5 Emmie Zamudio . [facility], [address], [place], [place], [address], [place]. tel:[phone] Referring Provider: Lizz Hernandez, [facility] [address], [place], [address]. tel:[phone] Office Visit Level 4 [facility], [address], [place], [address], [place] tel:[phone] [place] CVM Follow Up Visit (chief complaint)AF ib (chief complaint) Persistent atrial fibrillation Morbid obesityEssen tial hypertension Type 2 diabetes, HbA1c goal < 7%History of breast cancerMixed hyperlipidem iaOSA (obstructive sleep apnea)Abnorm al stress test 5 Emmie Zamudio . [facility], [address], [place], [place], [address], [place]. tel:[phone] Referring Provider: Lizz Hernandez, [facility] [address], [place], [address]. tel:[phone] [facility]cul ar Medicine [facility], [address], [place], [address], [place] tel:[phone] Sleep Lab CVM Obstructive sleep apnea (adult) (pediatric) 5 Krzysztof Contreras. [facility] , [address], [place], [place], [address], [place]. tel:[phone] Referring Provider: Ben Blankenship MD, [facility] [address], [place], [address]. tel:[phone] [facility] Medicine [facility], [address], [place], [address], [place] tel:[phone] [place] CVM Obstructive sleep apnea (adult) (pediatric) 5 Krzysztof Contreras. [facility] , [address], [place], [place], [address], [place]. tel:[phone] [facility] Medicine [facility], [address], [place], [address], [place] tel:[phone] DX Demetra CVM Abnormal result of cardiovascul ar function study, unspecifiedO ther persistent atrial fibrillation 5 [facility]. [facility]. Referring Provider: Lizz Hernandez, [facility] [address], [place], [address]. tel:[phone] [facility]cul [facility] Medicine [facility], [address], [place], [address], [place] tel:[phone] Sleep Lab CVM Obstructive sleep apnea (adult) (pediatric) 5 Krzysztof Contreras. [facility] , [address], [place], [place], [address], [place]. tel:[phone] Referring Provider: Lizz Hernandez, [facility] [address], [place], [address]. tel:[phone] New Pt Office Visit Level 4 [facility] Medicine [facility], [address], [place], [address], [place] tel:[phone] Wal[place] CVM AFib (chief complaint) Persistent atrial fibrillation Morbid obesityEssen tial hypertension Type 2 diabetes, HbA1c goal < 7%History of breast cancerMixed hyperlipidem [facility] 5 Emmie Zamudio . [facility], [address], [place], [address], [place]. tel:[phone] Referring Provider: Ana Orozco, [address] [address] [place], [address]. tel:[phone] [facility], [address], [place], [address], [place] tel:[phone] [facility] No Information 201 3 Alfonzo Saenz. [facility] , [address], [place], [place], [address], [place]. tel:[phone] Referring Provider: Lexie Mccray, [address] [place] [address] [address], [place], [address]. tel:[phone] [facility]ascul ar Medicine [facility], [address], [place], [address], [place] tel:[phone] [facility] No Information 7 Kira Rolon . [facility] , [address], [place], [place], [address], [place]. tel:[phone] Referring Provider: Lexie Mccray, [address] [place] [address] 1, [place], [address]. tel:[phone] Family History Family Member Type Diagnosis Age At Onset Sister Problem Heart Murmur Payers Payer name Insurance type Covered libertarian ID Authoriza tion(s) Medicare [place] [id number] Aetna Medicare Supplement CI [id number] Social History Type Description Quantity Date Captured Comments Sex Female Smoking Status No Information Chief Complaint And Reason For Visit No Information Reason For Referral Reason For Referral No Information Plan Of Treatment Date Type Action Status Appointment Charis Nair BOOKED Appointment Charis Nair BOOKED Future Order: Radiology Order Nu clear PET/CT (PT), Appointment on: , Collected on: Ordered History Of Present Illness Encounter Date Complaint History Of Prese nt Illness AFib The [id number] s core is 2 points (2.2% annual risk of thromboembolic event). Cardiovascular Review She has gannon d no chest discomfort suggestive of ischemia. The patient denies orthopnea, PND, CAZARES, or edema. Ms. Nair has not had palpitations, syncope or near syncope. She denies claudication. There is no discoloration or ulceration of the lower extremities. She has had no TIA or stroke-like symptoms. The patient has no symptoms attributable to valvular heart disease. The patient denies any symptoms suggestive of sleep disorders. AFib AFib AFib Follow Up Visit AFib Functional Status Date Functional Assessmen t No Information Instructions Date Instruction Additional Infor shwetha Coumadin Instructions Coumadin And Vitamin K PCP Wellness Visit Assessments Type Assessment Date No Information Patient Care Teams Name Effective Dates (start - stop) Status Members No Information
[2025-08-09 10:51] LABS: Hematocrit 33.5 % (37.0-47.0); Hemoglobin 10.7 g/dL (12.0-15.0); Immature Granulocyte Percent A 0.3 % (0-0.5); Lymphocytes Absolute Auto 1.90 K/mm3 (0.9-3.2); Mean Corpuscular HGB Conc 31.9 g/dl (32-36); Mean Corpuscular Hemoglobin 29.6 pg (26-34); Mean Corpuscular Volume 92.8 fl (80-100); Nucleated Red Blood Cells Absolute Auto 0.000 K/mm3 (0.0-0.012); Nucleated Red Blood Cells Perc 0.0 % (0.0-0.2); Platelet Count Result 233 k/mm3 (150-375); Red Blood Count 3.61 M/mm3 (4.2-5.4); White Blood Count 6.7 K/mm3 (4.5-10.0)
[2025-08-09 11:28] LABS: Alanine Aminotransferase 20 U/L (6-35); Albumin Level 4.4 g/dL (3.5-5.1); Alkaline Phosphatase 57 U/L (38-126); Anion Gap 8 mmol/L (4-12); Aspartate Amino Transferase 29 U/L (14-36); Bilirubin,Total 0.3 mg/dL (0.2-1.3); Blood Urea Nitrogen 13 mg/dL (7-17); Calcium 9.4 mg/dL (8.4-10.2); Carbon Dioxide 27 mmol/L (22-30); Chloride 104 mmol/L (98-107); Estimated Glomerular Filt Rate > 60; Glucose 93 mg/dL (65-110); Iron 101 ug/dL (37-170); Potassium 4.4 mmol/L (3.4-5.0); Sodium 139 mmol/L (137-145); Total Protein 7.6 g/dL (6.3-8.2)
[2025-08-09 11:39] LABS: Percent Iron Saturation 30 % (20-50)
--- OUTSIDE RECORDS SUMMARY | 2025-08-09 12:07 | XMS_ITS | Clinical Summary ---
Author Organization [facility] Address [address] [place] [address] Care Team Providers Care Senior Corporate Recruiter Name Role Phone Sophy Vera MD Primary [...] (03/02/2020): Added automatically from request for surgery [id number] Closed fracture of left proximal humerus 020 Overview (03/02/2020): Added automatically from request for surgery [id number] Iron deficiency anemia 06/19/2019 Osteoarthritis of hip 09/17/2017 Arthralgia of hip 03/04/2017 Normocytic normochromic anemia 08/04/2013 Acid indigestion Anemia Surgical History Surgery Date Site/Laterality Comments TRIGGER [...] on file 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 Gender Identity Not on file Sexual Orientation [...] 2025 10/06/2020 Medical Devices Implanted Type Area Veterans Contact Representative Device Identifier Shelf Expiration Date Model / Serial / Lot Synthes 241.901 Lcp Combi Philos 16j99w2.5mm 3 Hole Shaft Lock Compression - S0 - [id number] Implanted:Qty: 1 on 03/03/2020 at [facility] Plate Left: Humerus Synthes I 241.901 / 0 / 0 Synthes 206.035 4mm 6mm 35mm Small Hexagonal Socket Cancellous Full Thread Screw - S0 - [id number] Implanted:Qty: 1 on 03/03/2020 by Felton Fontanez MD at [facility] Screw Left: Humerus Synthes I 206.035 / 0 / 0 Synthes 212.114 3.5mm 2.9mm 35mm Self Tap Lock Stardrive Conical Head T15 Full - S0 - [id number] Implanted:Qty: 1 on 03/03/2020 by Felton Fontanez MD at [facility] Screw Left: Humerus Synthes I 212.114 / 0 / 0 Synthes 204.826 3.5mm 6mm 26mm 2.5mm Self Tap Small Hexagonal Socket Low Profile - S0 - [id number] Implanted:Qty: 1 on 03/03/2020 by Felton Fontanez MD at [facility] Screw Left: Humerus Synthes I 204.826 / 0 / 0 Synthes 212.119 3.5mm 2.9mm 45mm Self Tap Lock Stardrive Conical Head T15 Full - S0 - [id number] Implanted:Qty: 1 on 03/03/2020 by Felton Fontanez MD at [facility] Screw Left: Humerus Synthes I 212.119 / 0 / 0 Synthes 212.134 3.5mm 2.9mm 44mm Self Tap Lock Stardrive Conical Head T15 Full - S0 - [id number] Implanted:Qty: 3 on 03/03/2020 by Felton Fontanez MD at [facility] Screw Left: Humerus Synthes I 212.134 / 0 / 0 Synthes 212.118 3.5mm 2.9mm 42mm Self Tap Lock St[employer]rive Conical Head Full Thread - S0 - [id number] Implanted:Qty: 1 on 03/03/2020 by Felton Fontanez MD at [facility] Screw Left: Humerus Synthes I 212.118 / 0 / 0 Synthes 204.828 3.5mm 6mm 28mm 2.5mm Self Tap Small Hexagonal Socket Low Profile - S0 - [id number] Implanted:Qty: 1 on 03/03/2020 by Felton Fontanez MD at [facility] Screw Left: Humerus Synthes I 204.828 / 0 / 0 Explanted Type Area Veterans Contact Representative Device Identifier Shelf Expiration Date Model / Serial / Lot [employer] 1624-109ns Steinmann 3/32in 9in 2 Trocar Pin Fixation Nonsterile - S0 - [id number] Explanted:Qty: 3 on 03/03/2020 at [facility] Other - see comments Left: Humerus [employer] 1624-109N S / 0 / Synthes 292.16 Darby 1.6mm 150mm Trocar Tip Wire Fixation Stainless Steel - S0 - [id number] Explanted:Qty: 3 on 03/03/2020 by Felton Fontanez MD at [facility] Wire Left: Humerus Synthes I 292.16 / 0 / 0 Description:Provisional Fixa tion [facility] [employer] MEDIC[facility] GOLD Care Teams Senior Corporate Recruiter Relationship Specialty Start Date End Date Sophy Vera MD [address] [place] [address] [place] [address] PCP - General Family Medicine 09/25/24
--- OUTSIDE RECORDS SUMMARY | 2025-08-09 12:07 | XMS_ITS | Clinical Summary ---
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 Gender Identity Not on file Sexual Orientation Not on file Occupation Industry Job Start Date Job End Date [employer] Not on file Not on file Not on file Last Filed Vital Signs Vital Sign Reading Time Taken Comments Blood Pressure 112/76 11/03/2019 1:22 PM ALPINE GUIDE Pulse 67 11/03/2019 1:22 PM ALPINE GUIDE Temperature 36.2 C (97.1 F) 11/03/2019 1:22 PM ALPINE GUIDE Respiratory Rate 12 11/03/2019 1:22 PM ALPINE GUIDE Oxygen Saturation 96% 11/03/2019 1:22 PM ALPINE GUIDE Inhaled Oxygen Concentration - - Weight 69.9 kg (154 lb) 11/03/2019 1:22 PM ALPINE GUIDE Height 162.6 cm (5' 4) 11/03/2019 1:22 PM ALPINE GUIDE Body Mass Index 26.43 11/03/2019 1:22 PM ALPINE GUIDE Plan of Treatment Health Maintenance Due Date Last Done Comments Hepatitis C Virus (HCV) Screening 1955 TdaP Immunization 1955 Cologuard 2002 Immunochemical Fecal Occult Blood 2002 Pneumococcal Immunization (5 0+ years) (1 of 1 - PCV) 2007 Zoster Immunization (1 of 2) 2007 Colonoscopy 07/09/2024 07/09/2019, 11/13/2013 Colorectal Cancer Screening 07/09/2024 Influenza Immunization (#1) 2025 SARS-COV-2 Immunization (2 - season) 2025 01/09/2021 Respiratory Syncytial Virus (RSV) Immunization (Adult) (1 [...] Recently Relevant to Health Maintenance Care Teams Administrative Services Assistant Relationship Specialty Start Date End Date Luis Weiss MD [address] [place] [address] PCP - General Family Medicine 07/29/19
--- OUTSIDE RECORDS SUMMARY | 2025-08-09 12:07 | XMS_ITS | Clinical Summary ---
Author Organization [facility] Address [address] [facility] [place] [address] Care Team Providers Care Derrick Follower Name Role Phone Sophy Vera MD Primary Care Provider [phone] Allergies No known active allergies Medications omeprazole [...] Encounters Date Type Department Care Team Description 07/20/2025 External Device Data [facility] Provider, Abstract 07/13/2025 External Device Data [facility] Provider, Abstract 06/09/2025 External Device Data [facility] Provider, Abstract 06/08/2025 External Device Data [facility]STRACTION Provider, Abstract [...] Description 08/11/2025 3:30 PM CDT Office Visit [facility] Oncology and Hematology - [place] [address] [facility] [address] [place] [address] Kirt Rosario MD [address] [place] [address] Health Maintenance Due Date Last Done Comments DTAP/TDAP/TD VACCINES (1 - Tdap) 1976 BREAST CANCER SCREENING 1997 FIT-DNA Q 3 years 2002 FIT/FOBT Q 1 year 2002 Flex Sig/CT Colonography Q 5 years 2002 PNEUMOCOCCAL VACCINE 50+ YEARS (1 of 1 - PCV) 12/17/19 08 ZOSTER VACCINE (1 of 2) 2007 OSTEOPOROSIS SCREENING 2022 Medicare Advantage (MS) Prev entative Visit/Annual Wellness Visit 11/04/2024 INFLUENZA VACCINE (#1) 2025 COLORECTAL SCREENING 07/09/2029 07/09/2019 Colorectal Cancer Screening 07/09/2029 RSV VACCINE (60+ or ) (1 - 1-dose 75+ series) 2032 Insurance [facility] Care Teams Derrick Follower Relationship Specialty Start Date End Date Sophy Vera MD [address] [facility] [address] [address] PCP - General Family Practice 04/25/23
--- OUTSIDE RECORDS SUMMARY | 2025-08-09 12:08 | XMS_ITS | Clinical Summary ---
Author Organization [facility] Address [address] [place] [id number] Care Team Providers Care Typewriter Assembler Name Role Phone Sophy Vera MD Primary Care Provider [phone] Allergies No known active allergies Medications hydrocodone-acet [...] Comments Blood Pressure 108/59 10/02/2023 4:35 PM RAILWAY SHUNTER Pulse 65 10/02/2023 4:35 PM RAILWAY SHUNTER Temperature 36.3 C (97.4 F) 10/02/2023 2:08 PM RAILWAY SHUNTER Respiratory Rate 15 10/02/2023 4:35 PM RAILWAY SHUNTER Oxygen Saturation 100% 10/02/2023 4:35 PM RAILWAY SHUNTER Inhaled Oxygen Concentration - - Weight 64.9 kg (143 lb) 10/02/2023 2:08 PM RAILWAY SHUNTER Height 162.6 cm (5' 4) 10/02/2023 2:08 PM RAILWAY SHUNTER Body Mass Index 24.55 10/02/2023 2:08 PM RAILWAY SHUNTER Plan of Treatment Health Maintenance Due Date Last Done Comments Colorectal Cancer Screening Colonoscopy (10 Years) 1957 Hepatitis C 1975 DTaP, Tdap and Td Vaccines ( 1 - Tdap) 1976 Mammogram Screening 1997 Pneumococcal Vaccine: 50+ Years (1 of 1 - PCV) 2007 Zoster Vaccines (1 of 2) 2007 Annual Medicare Wellness Visit 2022 Dexa Scan (General) 2022 COVID-19 Vaccine (3 - 2024-2 6 season) 2025 04/17/2022, 01/09/2021 RSV Immunization or 60+ Years [...] age to complete this topic Insurance [employer] MEDICARE Care Teams Typewriter Assembler Relationship Specialty Start Date End Date Sophy Vera MD [address] [facility] [facility] [address] [address] [place] [address] [place] [id number] PCP - General FAMILY PRACTICE 10/02/23
[2025-08-09 12:10] LABS: Ferritin 110.00 ng/mL (11.1-264)
== END 2025-08-09 10:40 | disposition home or self-care (01) ==
LOC: ANHLAB 10:41
PROVIDERS: PCP Family Medicine; Visit Provider Internal Medicine Hematology & Oncology
DX: D64.9 Anemia, unspecified (principal)
CPT/HCPCS: 36415; 80053; 82728; 83540; 83550; 85025